=== PATIENT | male | born 1950 | race Caucasian/White ===

== ENCOUNTER 2018-05-15 01:33 | Outpatient (CLI) | payer OTHER, SELFPAY ==
--- NOTE | 2018-05-15 16:00 | DI.US_ITS ---
SYMPTOM/DIAGNOSIS: ? RT RENAL CYST, N28.1, F/U MRI RENAL ULTRASOUND: Comparison is made with CT from 2017 as well as MRI from 09/12/17. Two cysts were demonstrated on the previous MRI and are not as well seen on the CT due to lack of IV contrast. No suspicious features were identified. There is mild renal atrophy and mild parenchymal thinning. There are two cysts seen on the right kidney, one at the upper pole and the other in the mid right kidney. There are no suspicious features. There is no evidence of hydronephrosis or calcifications. The prostate is enlarged. The bladder was not well distended with a volume of 42 cc's. Both ureteral jets were visualized. There is circumferential bladder wall thickening. No focal bladder mass is identified. IMPRESSION: Enlarged prostate and diffuse bladder wall thickening. Simple right renal cysts.
== END 2018-05-15 01:53 ==
PROVIDERS: PCP Specialist/Technologist Athletic Trainer; Visit Provider Specialist/Technologist Athletic Trainer
DX: N28.1 Cyst of kidney, acquired (principal); N32.9 Bladder disorder, unspecified; N40.0 Benign prostatic hyperplasia without lower urinary tract symptoms
CPT/HCPCS: 76770

== ENCOUNTER 2018-11-09 11:05 | Outpatient (REF) | payer OTHER, SELFPAY ==
[2018-11-09 21:38] LABS: HGB 14.6 g/dL (13.5-17.5); Mean Corp. HGB Concentration 33.2 g/dL (32.0-36.0); Mean Corpuscular Hemoglobin 29.3 pg (27.0-33.0); Mean Corpuscular Volume 88.2 fL (80-95); Mean Platelet Volume 11.5 fL (8.0-11.0); Platelet Count 291 x1000/uL (130-400); RBC 4.99 m/cumm (4.50-6.00); RBC Distribution Width 13.9 % (11.8-14.1); White Blood Cell Count 6.18 k/cumm (4.4-10.8)
[2018-11-09 22:08] LABS: ALT 16 U/L (16-63); AST 17 U/L (15-37); Albumin 3.7 g/dL (3.4-5.0); Alkaline Phosphatase 95 U/L (46-116); Anion Gap 8.8 mmol/L (3-11); BUN 18 mg/dL (7-18); Bilirubin, Total 0.4 mg/dL (0.2-1.0); CO2 28.2 mmol/L (21.0-32.0); CREATININE 1.13 mg/dL (0.70-1.30); Calculated LDL 116 mg/dL; Chloride 103 mmol/L (98-107); Cholesterol 177 mg/dL (50-200); Glucose 84 mg/dL (70-100); HDL Cholesterol 49 mg/dL (40-60); Potassium 4.7 mmol/L (3.5-5.1); Sodium 140 mmol/L (136-145); Triglyceride 62 mg/dL (30-150)
== END 2018-11-09 11:25 ==
LOC: NCHCN 11:05
PROVIDERS: PCP Specialist/Technologist Athletic Trainer; Visit Provider Specialist/Technologist Athletic Trainer
DX: Z00.00 Encounter for general adult medical examination without abnormal findings (principal); K27.9 Peptic ulcer, site unspecified, unspecified as acute or chronic, without hemorrhage or perforation
CPT/HCPCS: 80053; 80061; 85027

== ENCOUNTER 2019-01-01 13:42 | Outpatient (REF) | payer OTHER, MEDICAID, SELFPAY ==
--- NOTE | 2019-01-01 | SKI_PTH ---
PATIENT: Antoine Neal LOC: [facility] U#:[id number] AGE/SX: 68/M ROOM: RE01/01/[address]: Brian Perez DO : 1950 BED: DIS: 01/01/2019 SPEC #: [id number] RECD: 01/01/19 18:12 STATUS: MELISSA REQ #: [id number] FERNANDO: 01/01/19 00:[address]: Brian Perez DEPT: Surgical Specimen RECD BY: Emma Lei ENTERED: 01/01/19 18:13 SP TYPE: NEIL BRENNER DR: Edwardo Lerner Tissues: 1 - SKIN BIOPSY(SHAVE/PUNCH) Procedures: SKIN LEVEL 4 Comments: [id number]
== END 2019-01-01 14:02 ==
LOC: LBN 13:42
PROVIDERS: PCP Specialist/Technologist Athletic Trainer; Visit Provider Otolaryngology Otolaryngology/Facial Plastic Surgery
DX: L82.1 Other seborrheic keratosis (principal)
CPT/HCPCS: 88305

== ENCOUNTER 2019-02-13 09:44 | Outpatient (CLI) | payer MEDICAID, SELFPAY ==
--- NOTE | 2019-02-13 09:55 | DI.RAD_ITS ---
EXAM: XR LUMBAR SPINE COMPLETE INDICATION: LOW BACK PAIN M54.5. COMPARISON: XR HIP LT COMPLETE AP PELVIS from 02/13/2019 TECHNIQUE: 2D digital imaging was performed. FINDINGS: Moderate degenerative changes are present throughout the lumbar spine. No acute fractures or subluxa tions are present. There is no spondylolysis or spondylolisthesis. Aortic calcifications are noted. IMPRESSION: No acute fracture or subluxation in the lumbar spine.
--- NOTE | 2019-02-13 09:55 | DI.RAD_ITS ---
EXAM: XR HIP LT COMPLETE AP PELVIS INDICATION: LT HIP PAIN M25.552 AFTER FALL. COMPARISON: LEFT HIP COMPLETE from 12/11/2009 THORACIC SPINE from 07/26/2017 LUMBAR SPINE COMPLETE from 07/26/2017 TECHNIQUE: 2D digital imaging was performed. FINDINGS: No acute fracture or dislocation is present. The patient has a left total hip replacement. No evide nce of hardware failure is seen. There is stable deformity of the left hemipelvis. This may be post traumatic. Vascular calcifications are seen in the soft tissues. The sacroiliac joint and symphysis pubis are intact. IMPRESSION: No acute fracture or dislocation.
== END 2019-02-13 10:04 ==
PROVIDERS: PCP Specialist/Technologist Athletic Trainer; Visit Provider Specialist/Technologist Athletic Trainer
DX: M54.5 Low back pain (principal); M47.816 Spondylosis without myelopathy or radiculopathy, lumbar region; M25.552 Pain in left hip; Z96.642 Presence of left artificial hip joint
CPT/HCPCS: 72110; 73502

== ENCOUNTER 2019-02-15 11:33 | Emergency (ER) | payer MEDICAID, SELFPAY ==
[2019-02-15 11:35] VITALS: BP 148/79; PULSE 66; RESP 14; TEMP 36.7; O2SAT 98
[2019-02-15] MEDS: Lidocaine 5% Patch 1 PATCH TP (11:57)
[2019-02-15] MEDS: Ketorolac 30 MG/ML VIAL IM (11:57)
--- NOTE | 2019-02-15 12:02 | DI.RAD_ITS ---
EXAM: XR SHOULDER RT COMPLETE 2+V INDICATION: 15 years of right shoulder pain. COMPARISON: No exams were available for comparison TECHNIQUE: 2D digital imaging was performed. FINDINGS: No fracture or dislocation is seen. There are mild degenerative changes of the AC joint and glenohum eral joint. An exostosis is seen in the proximal humeral metaphysis. IMPRESSION: No acute abnormality.
--- NOTE | 2019-02-15 12:17 | ED.GENADUL_ITS ---
Discharge Plan Disposition Patient Disposition: HOME Condition: Good Discharge Details Chief Complaint: Orthopedic Clinical Impression: Pain in right shoulder Primary Care Provider: Edwardo Lerner ED Provider: Jamari Son Home Meds and New Rx's Prescriptions: New acetaminophen [Mapap Extra Strength] 500 MG tablet 1,000 mg PO Q6H 5 Days Qty: 60 RF: 0 lidocaine [Lidoderm] 1 PATCH patch 1 patch Topical Q24H Qty: 4 RF: 0 No Action pantoprazole [Protonix] 20 MG tablet,delayed release (DR/EC) 40 mg PO DAILY RF: 0 pregabalin [Lyrica] 25 MG capsule 200 mg PO TID RF: 0 marijuana, medical RF: 0 Flovent HFA 120 PUFF HFA aerosol inhaler 2 puff Inhalation BID RF: 0 albuterol sulfate [ProAir HFA] 200 PUFF HFA aerosol inhaler 2 puff Inhalation Q4H PRN PRN (Reason: Wheezing) RF: 0 Discharge Instructions Instructions: Shoulder Pain (ED) Additional Instructions: At this time there is no evidence of significant abnormality in your shoulder on the x-ray. You do have chronic arthritis and degeneration. I have given you a prescription for Lidoderm patches, if your insurance does not cover this you can get 4% Lidoderm patches [id number] for relatively inexpensive cost. This is almost just as good as the prescription. Please continue to take Tylenol, you can take 1000 mg 4 times a day. I would recommend icing your shoulder and anytime it hurts. We have scheduled an orthopedic follow-up for you and they will contact you with the appointment date. If you notice any worsening of your symptoms, or any new symptoms such as vomiting, diarrhea, fever, chills, shortness of breath, chest pain, numbness, weakness, or fainting , please return immediately to the emergency department for reevaluation. Please follow up with your primary care provider as soon as possible for reassessment and reevaluation. As always, it was a pleasure participating in your medical care today. Referrals: Edwardo Lerner [Primary Care Provider] - Medical Decision Making This is a 68-year-old male who presents with 15 years of right should er pain. 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 He was seen by an credit collections specialist at [facility] 15 years ago, he is since moved. His symptoms became notably worse over the last week when he was laying down new tile at his trailer, and use the shoulder significantly. He is right-hand dominant. Physical exam shows notable restriction in movement no crepitus. No redness warmth or signs of infection cellulitis or significant bursitis. Intact sensation and vascular exam. Notable range of motion limitation for internal and external rotation as well as abduction. Suspect chronic arthritis compounded by impingement syndrome potentially. Patient takes Tylenol but avoids ibuprofen secondary to a history of gastric ulcers. X-ray shows no evidence of acute fracture process, there is some joint degeneration. Pain improved with Toradol shot Lidoderm patch. At this time I feel that the patient be safely discharged but does require orthopedic follow-up on an outpatient basis. We will schedule this for him. We will give a prescription for Lidoderm patches, as well as recommend continued NSAIDs ice. I have extensively reviewed the treatment plan and discharge instructions with the patient. I have addressed all patient concerns at this time. The patient was made aware of what symptoms to monitor for that would warrant a return to the emergency department. Discussed the plan with the patient, they demonstrate verbal understanding and agreement with our assessment and plan at this time. Additionally due to the chronicity of his symptoms, the notable reproducible component, signs and symptoms are notably inconsistent with ACS or cardiac etiology at this time clinically. HPI General Date/Time Provider Initiated Documentation: 02/15/19 11:40 . HPI Narrative: This is a 68-year-old male with past medical history of reactive airway disease, who presents with 15 years of right shoulder pain. Patient states they saw an orthopedist years ago they found nothing. 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 He states that his pain has gradually continued to increase throughout the years, however over the last few weeks he has been laying a significant amount of jose and tiling, which is notably worsened his symptoms. He has been taking Tylenol but this is not improved his symptoms. He admits to occasional tingling in his hand arm and fingers. He denies any chest pain or chest tightness. Symptoms are made worse only with movement of the shoulder. He denies any recent trauma or previous fractures. He denies any fever or chills. He denies any IV or illicit drug use. He has no other complaints at this time. No other modifying factors. Related Data Home Medications Medication Instructions Recorded Confirmed pantoprazole [Protonix] 40 mg PO DAILY 11/13/15 02/15/19 pregabalin [Lyrica] 200 mg PO TID 11/13/15 02/15/19 Flovent HFA 2 puff INHALATION BID 12/03/15 07/17/18 albuterol sulfate [ProAir HFA] 2 puff INHALATION Q4H PRN PRN 12/03/15 02/15/19 acetaminophen [Mapap Extra 1,000 mg PO Q6H 5 Days #60 tab 02/15/19 Strength] lidocaine [Lidoderm] 1 patch TOPICAL Q24H #4 patch 02/15/19 Previous Rx's Medication Instructions Recorded acetaminophen [Mapap Extra 1,000 mg PO Q6H 5 Days #60 tab 02/15/19 Strength] lidocaine [Lidoderm] 1 patch TOPICAL Q24H #4 patch 02/15/19 Allergies Allergy/AdvReac Type Severity Reaction Status Date / Time clonazepam Allergy Unverified 02/15/19 11:40 aspirin AdvReac Intermediate ulcers Unverified 02/15/19 11:40 ibuprofen AdvReac Intermediate GI Bleeding Unverified 02/15/19 11:40 General Stated Complaint: Orthopedic ANTWAN: 4 Review of Systems All systems reviewed & are unremarkable except as noted in HPI and below PFSH Social History Smoking/Tobacco Use Status: Former Tobacco Use Drug use: Daily Do you feel safe at home: Yes Do you feel safe in your relationship?: Yes Exam Narrative Exam Narrative: 1.Const: Well-nourished, Well-developed, appearing stated age 2.Eyes: PERRL, no conjunctival injection, and symmetrical lids. 3.ENT: Atraumatic external nose and ears. Moist MM. Neck: Symmetric, trachea midline, No thyromegaly. 4.CVS: +S1/S2, No murmurs or gallops. Peripheral pulses 2+ and equal in all extremities. Brisk capillary refill in all extremities. 5.RESP: Unlabored respiratory effort. Clear to auscultation bilaterally. No wheezes rales or rhonchi 6.GI: Soft, Nontender/Nondistended, No hepatosplenomegaly. No guarding or rebound. 7.MSK: Normocephalic/Atraumatic, Extremities w/o deformity. No cyanosis or clubbing. Right shoulder: Right shoulder is notably limited in motion compared to the left likely secondary to the patient's decrease in use from pain. Pain is made worse with abduction, internal and external rotation. Decent range of motion with flexion and extension, mild tenderness on palpation of the shoulder in general, no focal tenderness though. No crepitus, no warmth, redness or signs of cellulitis. Exam of the elbow hand and fingers demonstrates normal flexion and extension normal strength and movement for all components. Brisk capillary refill in all fingers, intact two-point discrimination up to 5 mm in all fingers. Sensation is intact for pinprick and light touch. 8.Skin: Warm, Dry. No rashes or lesions. 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 Sensation grossly intact, no focal neurologic deficits. 10.Psych: (AAO) x3. Appropriate mood and affect Course Vital Signs Vital signs: Vital Signs Temperature 36.7 C 02/15/19 11:35 Pulse 66 02/15/19 11:35 Respiratory Rate 14 02/15/19 11:35 Blood Pressure 148/79 H 02/15/19 11:35 Pulse Oximetry 98 02/15/19 11:35 Temperature 36.7 C 02/15/19 11:35 Temperature Source Skin 02/15/19 11:35 Pulse 66 02/15/19 11:35 Respiratory Rate 14 02/15/19 11:35 Respiratory Effort 02/15/19 11:41 Blood Pressure 148/79 H 02/15/19 11:35 Blood Pressure Position Sitting 02/15/19 11:35 Pulse Oximetry 98 02/15/19 11:35 Oxygen Delivery Method Room Air 02/15/19 11:35 Oxygen Flow Rate 0 02/15/19 11:35 Pain Level 10 02/15/19 11:35 Comment 02/15/19 11:35
== END 2019-02-15 12:33 | disposition home or self-care (01) ==
PROVIDERS: Emergency Provider Student in an Organized Health Care Education/Training Program; PCP Specialist/Technologist Athletic Trainer
DX: M25.511 Pain in right shoulder (principal); X50.3XXA Overexertion from repetitive movements, initial encounter
CPT/HCPCS: 96372; 99284; 73030; 99283; J1885

== ENCOUNTER 2019-03-21 06:02 | Outpatient (CLI) | payer MEDICAID, SELFPAY ==
--- NOTE | 2019-03-21 09:45 | DI.MRI_ITS ---
EXAM: MR UPPER JOINT RT WO CLINICAL HISTORY: RT SHOULDER PAIN M25.511, CONCERN FOR RC TEAR. TECHNIQUE: Multiplanar multisequence MRI was performed. COMPARISON: MRI - L UPPER JOINT WO CONT from 04/23/2010 MRI - LUMBAR SPINE WO CONTRAST from 09/12/2017 XR SHOULDER RT COMPLETE 2+V from 02/15/2019 FINDINGS: There is mild spurring at the AC joint. There is a trace amount of fluid in the subacromial-subdelto id bursa. There is minimal intermediate signal in the distal supraspinatus tendon but no evidence of a discrete tear. There is no glenohumeral joint effusion. The infraspinatus, subscapularis and bic eps tendons appear intact. There is no significant muscular atrophy. There are mild degenerative ch anges of the glenoid. IMPRESSION: Mild degenerative changes of the AC joint and glenohumeral joint. Mild supraspinatus tendinosis.
== END 2019-03-21 06:22 ==
PROVIDERS: PCP Specialist/Technologist Athletic Trainer; Visit Provider Specialist/Technologist Athletic Trainer
DX: M25.511 Pain in right shoulder (principal); M19.011 Primary osteoarthritis, right shoulder; M75.81 Other shoulder lesions, right shoulder
CPT/HCPCS: 73221

== ENCOUNTER 2019-08-28 11:20 | Outpatient (REF) | payer MEDICAID, SELFPAY ==
[2019-08-29 09:16] LABS: PSA, Diagnostic 8.4 ng/mL (0.0-4.5)
== END 2019-08-28 11:40 ==
LOC: LBN 11:20
PROVIDERS: PCP Specialist/Technologist Athletic Trainer; Visit Provider Urology
DX: R97.20 Elevated prostate specific antigen [PSA] (principal)
CPT/HCPCS: 84153

== ENCOUNTER 2019-10-11 01:43 | Outpatient (CLI) | payer MEDICAID, SELFPAY ==
--- NOTE | 2019-10-11 08:10 | DI.RAD_ITS ---
EXAM: XR CHEST 2V PA LATERAL CLINICAL HISTORY: PREOP,Z01.818,MARJIUANA USE,F12.10 TECHNIQUE: 2D digital imaging was performed. COMPARISON: CR RIGHT SHOULDER COMPLETE from 05/12/2017 FINDINGS: The heart size is normal. The aorta is mildly tortuous. There are severe emphysematous changes, gre atest at the right upper lobe. There is bilateral pulmonary scarring. No infiltrate or effusion is seen. There are mild degenerative changes in the thoracic spine and shoulders. An exostosis is note d from the right proximal humerus. IMPRESSION: Emphysematous changes and scarring. No acute pulmonary findings. DATA REPOSITORY: RADIATION DOSE DELIVERED:
== END 2019-10-11 02:03 ==
PROVIDERS: PCP Family Medicine; Visit Provider Nurse Practitioner Family
DX: J43.9 Emphysema, unspecified (principal); F12.10 Cannabis abuse, uncomplicated; Z01.818 Encounter for other preprocedural examination
CPT/HCPCS: 71046

== ENCOUNTER 2020-01-14 09:20 | Outpatient (REF) | payer MEDICAID, SELFPAY ==
[2020-01-14 20:04] LABS: Anion Gap 5.8 mmol/L (3-11); BUN 17 mg/dL (7-18); CO2 28.2 mmol/L (21.0-32.0); CREATININE 1.13 mg/dL (0.70-1.30); Calculated LDL 116 mg/dL (<100); Chloride 101 mmol/L (98-107); Cholesterol 190 mg/dL (<200); Glucose 89 mg/dL (74-106); HDL Cholesterol 57 mg/dL (40-60); Magnesium 2.2 mg/dL (1.8-2.4); Potassium 4.4 mmol/L (3.5-5.1); Sodium 135 mmol/L (136-145); Triglyceride 85 mg/dL (<150)
== END 2020-01-14 09:40 ==
LOC: NCHCN 09:20
PROVIDERS: PCP Family Medicine; Visit Provider Nurse Practitioner Family
DX: Z51.81 Encounter for therapeutic drug level monitoring (principal); Z00.00 Encounter for general adult medical examination without abnormal findings
CPT/HCPCS: 80048; 80061; 83735

== ENCOUNTER 2020-05-11 09:15 | Emergency (ER) | payer MEDICARE, MEDICAID, SELFPAY ==
[2020-05-11 09:22] VITALS: BP 179/91; PULSE 77; RESP 20; TEMP 36.6; O2SAT 97
[2020-05-11] MEDS: Ketorolac 60 MG/2 ML VIAL IM (10:12)
[2020-05-11] MEDS: Lidocaine 5% Patch 1 PATCH TP (10:12)
--- NOTE | 2020-05-11 10:25 | ED.GENADUL_ITS ---
Discharge Plan Disposition Patient Disposition: HOME Condition: Stable Discharge Details Clinical Impression: Acute exacerbation of chronic low back pain Primary Care Provider: Radha Barlow V ED Provider: Sarbjit Grant Home Meds and New Rx's Prescriptions: New methylprednisolone [Methylpred DP] 4 mg tablets,dose pack See Rx Instructions .ROUTE .COMPLEX Qty: 21 RF: 0 lidocaine [Lidoderm] 5 % adhesive patch,medicated 1 patch topical DAILY Qty: 15 RF: 0 Continued pantoprazole [Protonix] 20 MG tablet,delayed release (DR/EC) 40 mg PO DAILY RF: 0 pregabalin [Lyrica] 25 MG capsule 300 mg PO BID RF: 0 marijuana, medical RF: 0 Flovent HFA 120 PUFF HFA aerosol inhaler 2 puff Inhalation BID RF: 0 albuterol sulfate [ProAir HFA] 200 PUFF HFA aerosol inhaler 2 puff Inhalation Q4H PRN PRN (Reason: Wheezing) RF: 0 lidocaine [Lidoderm] 1 PATCH patch 1 patch Topical Q24H Qty: 4 RF: 0 Discharge Instructions Instructions: Back Pain (ED) Additional Instructions: Medrol Dosepak and Lidoderm patches as directed. Gentle stretching as tolerated. Alternate between cool and/or warm compresses every 2 hours for 20 minutes. Please watch for new or worsening symptoms and return to the ER for any concerns. I strongly recommend contacting your orthopedic team in [place] tomorrow during business hours to discuss your ongoing symptoms and set up an outpatient appointment for further evaluation. Discharge Data Discharge Date/Time-TO BE ENTERED AT DEPARTURE: 05/11/20 10:34 Medical Decision Making <ELIEZER Jean - Last Filed: 05/11/20 11:53> This is a 69-year-old gentleman presenting complaining of left back and leg pain for the past 5 weeks, atraumatic. History of similar episodes typically helped with steroids however at this time the steroids have not helped. Patient denies fever, abdominal pain, urinary or bowel changes, numbness, tingling, weakness. Clinically he appears well, nontoxic, no acute distress. No evidence of saddle paresthesias, denies history of IV drug use. Clinically I believe this is likely musculoskeletal. I reviewed previous records, x-ray of lumbar spine and hip in February 2019. Patient does have good access to his orthopedic team and is followed by urology. He reports that in the past an IM injection has helped greatly. Clinically I see no obvious emergent process. He is afebrile, neuro, vascular, tendon intact. Discussed options, he is comfortable with an IM injection of Toradol, trying a Lidoderm patch, and will follow up with orthopedics. I do believe this to be perfectly reasonable plan. I did discuss the case with Dr. Morris who personally evaluated the patient, please see his note. Patient given IM Toradol and lidocaine patch. Patient reports moderate analgesia. He is now ambulating with less of an antalgic gait. Patient has no additional questions or concerns. He was given strict return precautions. We did discuss starting him on another trial of steroids, I will write this pr escription. He will contact his orthopedic team tomorrow for prompt outpatient reevaluation. Medical Records Medical records reviewed: Yes I reviewed the patient's medical records. <Agustin Morris MD - Last Filed: 05/16/20 20:52> Patient seen, examined, and discussed with ELIEZER Grant. I agree with treatment plan as discussed/documented. HPI <ELIEZER Jean - Last Filed: 05/11/20 11:53> General Mode of arrival: ambulatory . Date/Time Provider Initiated Documentation: 05/11/20 09:16 . Limitations to Documentation: no limitations . Information obtained by: patient . HPI Narrative: This is a 69-year-old gentleman with history of chronic back pain, elevated PSA, transection of his prostate, no diagnosis of prostate cancer. He reports history of GERD, COPD, former smoker. He tells me that he had a left hip replacement several years ago at [place], this is where he is followed by orthopedics. He states that he has had left lower back hip and leg pain intermittently for several years. This most recent episode began 5 weeks ago, was atraumatic. He contacted his primary care provider who prescribed a Medrol Dosepak which typically helps with these flareups; however, this time did not get any resolution. He cannot take oral anti-inflammatories secondary to history of ulcer and bleeding. He has had a hard time getting connected with his orthopedics given Covid and the pandemic. He states he does not want any oral pain medication. He denies recent illness, trauma, fevers, abdominal pain, nausea, vomiting, dysuria, hematuria, pain rating to his groin or testicles, diarrhea, constipation, black tarry stools or blood in his stools. He reports that the pain shoots all the way down his left leg but denies any numbness, tingling, weakness. He does state that occasionally he gets weakness in his left leg but it is not present now. He has had imaging of his left hip and back approximately 1 year ago for his ongoing symptoms. He also states that occasionally when the pain gets this severe, he is to be seen in the ER, typically an IM injection takes away his discomfort. Related Data Home Medications Medication Instructions Recorded Confirmed pantoprazole [Protonix] 40 mg PO DAILY 11/13/15 05/11/20 pregabalin [Lyrica] 300 mg PO BID 11/13/15 05/11/20 Flovent HFA 2 puff INHALATION BID 12/03/15 05/11/20 albuterol sulfate [ProAir HFA] 2 puff INHALATION Q4H PRN PRN 12/03/15 05/11/20 lidocaine [Lidoderm] 1 patch TOPICAL Q24H #4 patch 02/15/19 05/11/20 lidocaine [Lidoderm] 1 patch TOPICAL DAILY #15 ea 05/11/20 methylprednisolone [Methylpred DP] See Rx Instructions .ROUTE 05/11/20 .COMPLEX #21 dose pk Previous Rx's Medication Instructions Recorded lidocaine [Lidoderm] 1 patch TOPICAL Q24H #4 patch 02/15/19 lidocaine [Lidoderm] 1 patch TOPICAL DAILY #15 ea 05/11/20 methylprednisolone [Methylpred DP] See Rx Instructions .ROUTE 05/11/20 .COMPLEX #21 dose pk Allergies Allergy/AdvReac Type Severity Reaction Status Date / Time clonazepam Allergy Unverified 08/28/19 10:23 aspirin AdvReac Intermediate ulcers Unverified 08/28/19 10:23 ibuprofen AdvReac Intermediate GI Bleeding Unverified 08/28/19 10:23 General Stated Complaint: Nk/Back Pain ANTWAN: 4 Review of Systems <ELIEZER Jean - Last Filed: 05/11/20 11:53> Constitutional Constitutional: Denies fever(s) Cardiovascular Cardiovascular: Denies chest pain and Denies dyspnea Respiratory Respiratory: Denies cough and Denies dyspnea Gastrointestinal Gastrointestinal: Denies abdominal pain, Denies fecal incontinence, Denies nausea and Denies vomiting Genitourinary Genitourinary: Denies hematuria, Denies dysuria and Denies urinary incontinence Musculoskeletal Musculoskeletal: Reports back pain, Denies numbness and Denies tingling Integumentary/Breasts Skin/Breast: Denies rash Neurologic Neurologic: Denies numbness and Denies tingling PFSH <ELIEZER Jean - Last Filed: 05/11/20 11:53> Medical History High prostate specific antigen (PSA) Social History Smoking/Tobacco Use Status: Former Tobacco Use Smoking risk assessment performed?: Yes Drug use: Daily Substance use type: marijuana Do you feel safe at home: Yes Do you feel safe in your relationship?: Yes Exam <ELIEZER Jean - Last Filed: 05/11/20 11:53> Const General: cooperative, healthy appearing, comfortable and no acute distress Orientation: alert and awake HENKS Head: normal to inspection, normocephalic and atraumatic Eyes General: appearance normal, both eyes and all related structures Conjunctivae: conjunctivae normal Sclera: sclerae normal Neck Neck: normal visual inspection, full ROM, trachea midline and supple Resp Effort & Inspection: normal respiratory effort and able to speak in complete sentences Auscultation: clear to auscultation bilaterally Cardio Rate: regular rate Rhythm: regular rhythm GI Palpation: soft, not firm, no guarding, no pulsatile masses and nontender Back/Spine/Pelvis Back: no CVA tenderness and back tenderness (Diffuse left lower lumbar, no midline point tenderness) Skin General skin exam: no rashes or lesions noted Neuro General: patient alert, patient awake, moves all extremities and no focal motor deficits Cognition: normal cognition Gait: antalgic Motor: muscle tone normal throughout and strength 5/5 throughout Sensory Exam: no sensory deficits noted DTR's: Rt Patellar: 2+, Lt Patellar: 2+, Rt Ankle: 2+ and Lt Ankle: 2+ Extrem General: normal to inspection, full ROM, capillary refill normal, no pedal edema and no calf tenderness Other: Left lower extremity with full range of motion. Neuro, vascular, tendon intact. Normal pedal pulses. There is no swelling, erythema, ecchymosis, temperature discrepancies. Patient reports tenderness to entire leg with palpation. Psych Appearance: grossly normal Mental Status: mental status grossly normal Course <ELIEZER Jean - Last Filed: 05/11/20 11:53> Vital Signs Vital signs: Vital Signs Temperature 36.6 C 05/11/20 09:22 Pulse 77 05/11/20 09:22 Respiratory Rate 20 05/11/20 09:22 Blood Pressure 179/91 H 05/11/20 09:22 Pulse Oximetry 97 05/11/20 09:22 Temperature 36.6 C 05/11/20 09:22 Temperature Source Skin 05/11/20 09:22 Pulse 77 05/11/20 09:22 Respiratory Rate 20 05/11/20 09:22 Respiratory Effort Non-Labored 05/11/20 09:26 Blood Pressure 179/91 H 05/11/20 09:22 Blood Pressure Position Sitting 05/11/20 09:22 Pulse Oximetry 97 05/11/20 09:22 Oxygen Delivery Method Room Air 05/11/20 09:22 Oxygen Flow Rate 0 05/11/20 09:22 Pain Level 10 05/11/20 09:22
== END 2020-05-11 10:34 | disposition home or self-care (01) ==
PROVIDERS: Emergency Provider Physician Assistant; PCP Family Medicine
DX: M54.5 Low back pain (principal); G89.29 Other chronic pain; Z96.642 Presence of left artificial hip joint
CPT/HCPCS: 96372; 99284; 99283; J1885

== ENCOUNTER 2020-08-07 10:08 | Outpatient (CLI) | payer MEDICARE, MEDICAID, SELFPAY ==
--- NOTE | 2020-08-07 08:15 | DI.RAD_ITS ---
Exam(s) XR HIP LT AP LAT ONLY EXAM: XR HIP LT AP LAT ONLY CLINICAL HISTORY: L hip pain TECHNIQUE: COMPARISON: CR XR LUMBAR SPINE COMPLETE from 02/13/2019 FINDINGS: Two views were obtained and show total hip joint replacement in position on the left. The components appear well seated. No other significant abnormality seen. There are mild degenerative changes of the right hip. IMPRESSION: RADIATION DOSE DELIVERED: Total DLP
== END 2020-08-07 10:09 | disposition home or self-care (01) ==
LOC: DIORS 10:13
PROVIDERS: PCP Family Medicine; Referring Provider Family Medicine; Visit Provider Physician Assistant
DX: M25.552 Pain in left hip (principal); Z96.642 Presence of left artificial hip joint
CPT/HCPCS: 73502

== ENCOUNTER 2020-08-13 01:28 | Outpatient (CLI) | payer MEDICARE, OTHER, MEDICAID, SELFPAY ==
--- NOTE | 2020-08-13 07:15 | DI.NM_ITS ---
Exam(s) NM BONE SCAN 3 PHASE EXAM: NM BONE SCAN 3 PHASE CLINICAL HISTORY: hip pain after total hip replacement,M25.552,Z96.642. TECHNIQUE: Injected Dose: 25 mCi Tc-99m MDP COMPARISON: CR XR HIP LT AP LAT ONLY from 08/07/2020 FINDINGS: Comparison is made with x-ray of the pelvis and left hip dated 08/07/2020. Perfusion: Symmetric. No focal areas of abnormal uptake. Blood Pool: Symmetric. No focal areas of abnormal uptake. Delayed: Photopenic area in the left hip consistent with the patient's known left total hip arthropla sty. Mild increased radiotracer uptake around the femoral component of the left hip prosthesis. The re is a focus of increased radiotracer uptake on the right at the L4-5 level. This would appear cons istent with the degenerative changes seen in the lumbar spine on the MRI examination from 09/12/2017. There is increased radiotracer uptake at the right acromioclavicular joint. This is consistent with degenerative changes seen on the MRI of the right shoulder from 03/21/2019. IMPRESSION: 1. No findings to suggest infection. DATA REPOSITORY:
== END 2020-08-13 01:48 ==
PROVIDERS: PCP Family Medicine; Visit Provider Student in an Organized Health Care Education/Training Program
DX: M25.552 Pain in left hip (principal); Z96.642 Presence of left artificial hip joint
CPT/HCPCS: 78315

== ENCOUNTER 2020-08-13 03:21 | Outpatient (CLI) | payer MEDICARE, MEDICAID, SELFPAY ==
[2020-08-13 11:52] LABS: HCT 44.5 % (40.0-50.0); HGB 14.7 g/dL (13.5-17.5); MCH 28.8 pg (27.0-33.0); MCV 87.3 fL (80-95); MPV 10.2 fL (8.0-11.0); Platelet Count 233 10^3/uL (130-400); RDW 13.2 % (11.8-14.1); RDW-SD 42.5 fL; WBC 6.35 10^3/uL (4.4-10.8)
[2020-08-13 11:54] LABS: ESR 21 mm/hr (0-20)
[2020-08-13 12:19] LABS: C-Reactive Protein 0.38 mg/dL (0.0-0.3)
== END 2020-08-13 03:22 | disposition home or self-care (01) ==
LOC: LBO 03:21
PROVIDERS: PCP Family Medicine; Visit Provider Student in an Organized Health Care Education/Training Program
DX: M25.552 Pain in left hip (principal)
CPT/HCPCS: 85027; 85652; 78315; 86140

== ENCOUNTER 2020-11-10 00:28 | Outpatient (CLI) | payer MEDICARE, MEDICAID, SELFPAY ==
--- NOTE | 2020-11-10 | DI.MRI_ITS ---
Exam(s) MR THORACIC SPINE WO/W EXAM: MR THORACIC SPINE WO/W CLINICAL HISTORY: LT SIDED BACK AND HIP PAIN,. TECHNIQUE: Multiplanar multisequence MRI of the Thoracic spine was performed. CONTRAST MATERIAL: IV Contrast: 14 mL of Dotarem contrast administered. COMPARISON: No exams were available for comparison FINDINGS: The examination is limited due to patient motion artifact. Bones: The vertebral body heights are well maintained. Alignment is satisfactory. The signal characte ristics are unremarkable. Cord: The thoracic cord is normal size and signal intensity. No intrinsic cord lesion is present. Discs: No disc herniation or bulge is present. Soft tissues: Normal. There is no evidence of suspicious enhancement. IMPRESSION: Unremarkable MRI examination of the thoracic spine. DATA REPOSITORY:
[2020-11-10 08:33] LABS: CREATININE 1.1 mg/dL (0.70-1.30)
[2020-11-10] MEDS: Normal Saline Flush 10 ML SYR IVP (09:07)
[2020-11-10] MEDS: Gadoterate meglumine 20 ML VIAL 14 ML IVP (09:07)
--- NOTE | 2020-11-10 10:15 | DI.MRI_ITS ---
Exam(s) MR LUMBAR SPINE WO/W EXAM: MR LUMBAR SPINE WO/W CLINICAL HISTORY: LT LUMBAR RADICULOPATHY,M54.16,LT SIDED LOW BACK AND HIP PAIN. TECHNIQUE: Multiplanar multisequence MRI of the Lumbar Spine was performed. CONTRAST MATERIAL: IV Contrast: 14 mL of Dotarem contrast administered. COMPARISON: MR MRI - LUMBAR SPINE WO CONTRAST from 09/12/2017 FINDINGS: Bones: The last intervertebral disc space is designated the L5/S1 level for the numbering purpose of this examination. The vertebral body heights are well maintained. Alignment is satisfactory. The sig nal characteristics are unremarkable. There is an L4 and L5 laminectomy. Cord: The conus tip ends at the L1 level. It is of normal size and signal intensity. T12-L1: No disc herniations or bulges are present. No central spinal canal or neural foraminal stenos is. L1-2: There is a mild diffuse disc bulge. No central spinal canal or neural foraminal stenosis. L2-3: A mild diffuse disc bulge is present. No significant central spinal canal stenosis is present. No neural foraminal stenosis is present. L3-4: There is a mild diffuse disc bulge and disc desiccation. Mild narrowing of the central spinal canal is noted.[id number] bilateral neural foraminal stenosis is present. L4-5: There is a diffuse disc bulge and disc desiccation. Moderate central spinal canal stenosis is seen.There is marked bilateral neural foraminal stenosis. L5-S1: No disc herniations or bulges are present. No central spinal canal or neural foraminal stenosi s. Soft tissues: The visualized SI joints and sacrum are well maintained. The paraspinal soft tissues ar e unremarkable. Bilateral simple renal cysts. There is no evidence of suspicious enhancement. IMPRESSION: Stable multilevel degenerative changes in the lumbar spine resulting in central spinal canal and neur al foraminal stenosis predominantly at L4-5. DATA REPOSITORY:
== END 2020-11-10 00:48 ==
PROVIDERS: PCP Family Medicine; Visit Provider Nurse Practitioner Family
DX: M54.16 Radiculopathy, lumbar region (principal); M25.552 Pain in left hip; M51.36 Other intervertebral disc degeneration, lumbar region; M99.73 Connective tissue and disc stenosis of intervertebral foramina of lumbar region
CPT/HCPCS: 72158; 72157; 82565

== ENCOUNTER → 2021-03-02 08:55 | Outpatient (BNVA) | payer MEDICARE, MEDICAID, SELFPAY | PROVIDERS: PCP Family Medicine; Referring Provider Family Medicine; Visit Provider Urology | DX: R31.0 Gross hematuria (principal); R97.20 Elevated prostate specific antigen [PSA] | CPT/HCPCS: 81003; 99214 ==

== ENCOUNTER 2021-03-02 12:28 | Outpatient (REF) | payer MEDICARE, MEDICAID, SELFPAY ==
[2021-03-02 18:24] LABS: PSA, Diagnostic 10.1 ng/mL (0.0-4.5)
== END 2021-03-02 12:29 | disposition home or self-care (01) ==
LOC: LBN 12:28
PROVIDERS: PCP Family Medicine; Visit Provider Urology
DX: R31.0 Gross hematuria (principal); R97.20 Elevated prostate specific antigen [PSA]
CPT/HCPCS: 84153

== ENCOUNTER 2021-03-17 02:11 | Outpatient (CLI) | payer MEDICARE, MEDICAID, SELFPAY ==
[2021-03-17 13:21] LABS: Source Nasal/Nares
[2021-03-17 15:38] LABS: COVID-19 PCR Negative (Negative)
== END 2021-03-17 02:12 | disposition home or self-care (01) ==
LOC: LBO 02:12
PROVIDERS: PCP Family Medicine; Visit Provider Urology
DX: Z20.822 Contact with and (suspected) exposure to COVID-19 (principal); Z01.818 Encounter for other preprocedural examination
CPT/HCPCS: 87635

== ENCOUNTER 2021-03-19 07:16 | Day surgery (SDC) | payer MEDICARE, MEDICAID, SELFPAY ==
[2021-03-19 07:20] VITALS: BP 141/76; PULSE 63; RESP 16; TEMP 36.1; O2SAT 97
[2021-03-19 07:27] VITALS: BP 147/76; RESP 16; TEMP 36.1; O2SAT 97
[2021-03-19] MEDS: Lactated Ringers 1,000 ML 80 ML IV (07:56)
--- NOTE | 2021-03-19 08:22 | W.ANESPRE ---
General Info Date of Service Date Performed: 03/19/21 Height: 5 ft 8 in Weight: 76.5 kg Body Mass Index (BMI): 25.6 Surgical Procedure: Operation Date: 03/19/21 09:10 Proposed Procedures Side Surgeon p Cystoscopy/Possible Transurethral Resection Bladder Tumor Jhony Meade MD Meds Allergies and Home Medications Allergies Allergy/AdvReac Type Severity Reaction Status Date / Time clonazepam Allergy Intermediate Other (See Unverified 03/19/21 07:36 Comment) aspirin AdvReac Intermediate ulcers Unverified 03/19/21 07:36 ibuprofen AdvReac Intermediate GI Bleeding Unverified 03/19/21 07:36 Home Medication Medication Instructions Recorded pantoprazole [Protonix] 40 mg PO DAILY 11/13/15 pregabalin [Lyrica] 300 mg PO BID 11/13/15 Flovent HFA 2 puff INHALATION BID 12/03/15 albuterol sulfate [ProAir HFA] 2 puff INHALATION Q4H PRN PRN 12/03/15 lidocaine [Lidoderm] 1 patch TOPICAL DAILY #15 ea 05/11/20 finasteride 5 mg tablet 5 mg PO DAILY #30 tab 03/02/21 Current Visit Medications: Current Medications Generic Name Dose Route Start Last Admin Trade Name Freq PRN Reason Stop Dose Admin Ringer's Solution 1,000 mls @ 80 mls/hr 03/19/21 06:00 03/19/21 07:56 IV 04/17/21 23:59 80 mls/hr INFUSION UMA Administration Cefazolin Sodium/Dextrose 2 gm in 50 mls @ 100 mls/hr 03/19/21 06:00 Ancef Duplex IVPB 03/19/21 16:00 PREOP UMA IV Miscellaneous Supplies 1 each 03/19/21 06:00 Iv Access IV 04/17/21 23:59 DIRECTED UMA Sodium Chloride 0 ml 03/19/21 06:00 Normal Saline Flush 10 Ml Syr IV 04/17/21 23:59 PRN PRN Sodium Chloride 0 ml 03/19/21 06:00 Normal Saline 10 Ml Vial IJ 04/17/21 23:59 DIRECTED PRN Sterile Water 0 ml 03/19/21 06:00 Water,Injection,Sterile 10 Ml Vial IJ 04/17/21 23:59 DIRECTED PRN PFSH Active Problems Active Problems: Problem Status Onset Code Urine retention R33.9 Neoplasm of unspecified behavior of bone, soft tissue, and skin D49.2 Chronic obstructive pulmonary disease J44.9 Gastroesophageal reflux disease without esophagitis K21.9 Medical marijuana use Z79.899 High prostate specific antigen (PSA) R97.20 Acute exacerbation of chronic low back pain M54.5, G89.29 Chronic hip pain after total replacement of left hip joint M25.552, G89.29, Z96.642 Gross hematuria R31.0 Medical History Medical History Prostatitis, chronic (12/15/15) Surgical History Surgical History (Updated 03/19/21 @ 07:35 by Abril Olmstead) H/O spinal fusion Tobacco Smoking/Tobacco Use Status: Former Tobacco Use Alcohol Alcohol Intake: current Alcohol intake frequency: holidays/special occasions only Substance Use Substance use: Daily Substance use type: marijuana Vital Signs and Lab Results Vital Signs Most Recent Vital Signs in EMR: Most Recent Vital Signs Temp Pulse Resp BP Pulse Ox 36.1 C L 63 16 147/76 H 97 03/19/21 07:27 03/19/21 07:20 03/19/21 07:27 03/19/21 07:27 03/19/21 07:27 Lab Results Blood Type / Crossmatch: No Data to Display Complete Blood Count: No Data to Display Complete Metabolic Panel: No Data to Display Liver Function Panel: No Data to Display Coagulation Panel: No Data to Display Cardiac Panel: No Data to Display Arterial Blood Gas: No Data to Display Venous Blood Gas: No Data to Display Pancreas Panel: No Data to Display Thyroid Panel: No Data to Display Infectious Disease: Coronavirus (COVID-19)(PCR) Negative (Negative) 03/17/21 08:30 03/17/21 Coronavirus 2019 Source Nasal/Nares 03/17/21 08:30 03/17/21 Blood Cultures: No Data to Display Toxicology Panel: No Data to Display Anesthesia Assessment and Plan Anesthesia History Personal History: No History of Anesthesia Complications Family History: No Family History of Anesthesia Complications Exercise Tolerance Exercise Tolerance: Metabolic Equivalents>4 Pertinent Negatives Pertinent Negatives: No Major Cardiovascular Symptoms or Complaints Cardiac & Pulmonary Exam Cardiac Exam: Normal S1/S2 Heart Sounds Pulmonary Exam: Clear Bilateral Breath Sounds Implantable Cardiac Device Does patient have a Pacemaker or an ICD?: No Airway Exam Known Difficult Airway: No Mallampati Class: 2 Mouth Opening: Normal (> 3cm) Thyromental Distance: Greater than 3 cm Facial Hair: Full [place] Neck Range of Motion: Full ROM Neck Circumference: Normal Teeth Condition: Edentulous ASA Classification ASA Score: ASA 2 Emergency Case?: No NPO Status NPO Status: NPO Clears >2 hours, Solids >8 hours Anesthesia Plan Resuscitation Status: Full Code Anesthesia Technique: General Anesthesia Airway Planned: LMA Monitors Used: Standard Monitors Preoperative Comments:: Daily heavy, chronic marijuana use. Reports no complications with past anesthetics. LMA 5 previously with good seal.
[2021-03-19 08:24] VITALS: BMI 25.6
--- NOTE | 2021-03-19 09:25 | HPE_ITS ---
Date of service: 03/19/21 Time of Service: 09:25 Assessment and Plan Assessment and plan (1) Gross hematuria: Status: Acute Assessment and plan: For cystoscopy with possible TURBT/possible fulguration of prostate bleeders History of Present Illness History of Present Illness Chief Complaint: Gross hematuria Narrative: This is a 69-year-old gentleman known to me from his previous episodes of urinary retention. He developed retention after a hip replacement. He failed maximal medical therapy and ultimately underwent a transurethral resection of the prostate back in 2016. His surgical pathology showed inflammation and prostate enlargement with no evidence of cancer. Cystoscopically, we noted a large median lobe as well as lateral lobe enlargement. We did not notice any sign of bladder cancer He had been doing well when he developed an acute onset of gross hematuria late last week. The episode occurred after he lifted and carried a battery. He did not notice any clots in the urine. Over time, the urine has cleared. we started him on finasteride and he has had no subsequent bleeding. He was seen in the emergency room at [facility]. His urinalysis was reassuring for the absence of infection. A CT scan done with contrast raised the question of a bladder mass or prostate indenting the base of the bladder. He is not on any anticoagulation. He has no history of kidney stones. He does not use tobacco products, but uses marijuana daily. He comes in for cystoscopy with possible TURBT/fulguration of bleeding sites. Review of Systems Narrative: No fevers or chills No vision change or dysphasia No diabetes or thyroid Chronic cough. No hemoptysis No chest pain or palpitations Hx GERD. No hepatitis, ulcers, jaundice, diarrhea or constipation No seizures, strokes or peripheral neuropathy No bleeding disorders or anemia No gout PFSH All Active Problems Urine retention (Acute) Neoplasm of unspecified behavior of bone, soft tissue, and skin (Acute) Chronic obstructive pulmonary disease (Chronic) Gastroesophageal reflux disease without esophagitis (Acute) Medical marijuana use (Acute) High prostate specific antigen (PSA) (Acute) Acute exacerbation of chronic low back pain (Acute) Chronic hip pain after total replacement of left hip joint (Acute) Gross hematuria (Acute) Medical History Prostatitis, chronic (12/15/15) Surgical History (Updated 03/19/21 @ 07:35 by Abril Olmstead) H/O spinal fusion Social History Smoking/Tobacco Use Status: Former Tobacco Use Quit Date: 03/14/01 Smoking risk assessment performed?: Yes Alcohol Intake: current Alcohol Intake frequency: holidays/special occasions only Drug use: Daily Substance use type: marijuana Do you feel safe at home: Yes Do you feel safe in your relationship?: Yes Meds Allergies and Home Medications Allergies Allergy/AdvReac Type Severity Reaction Status Date / Time clonazepam Allergy Intermediate Other (See Unverified 03/19/21 07:36 Comment) aspirin AdvReac Intermediate ulcers Unverified 03/19/21 07:36 ibuprofen AdvReac Intermediate GI Bleeding Unverified 03/19/21 07:36 Home Medications Medication Instructions Recorded Confirmed Type pantoprazole [Protonix] 40 mg PO DAILY 11/13/15 03/19/21 History pregabalin [Lyrica] 300 mg PO BID 11/13/15 03/19/21 History Flovent HFA 2 puff INHALATION BID 12/03/15 03/19/21 History albuterol sulfate [ProAir HFA] 2 puff INHALATION Q4H PRN PRN 12/03/15 03/19/21 History Marijuana, Medical 04/16/16 07/17/18 Clinic lidocaine [Lidoderm] 1 patch TOPICAL DAILY #15 ea 05/11/20 03/17/21 Rx finasteride 5 mg tablet 5 mg PO DAILY #30 tab 03/02/21 03/19/21 Rx Exam Const General: cooperative and comfortable Neck Neck: supple Resp Effort & Inspection: normal respiratory effort Auscultation: clear to auscultation bilaterally Cardio Rate: regular rate Rhythm: regular rhythm GI Palpation: soft and no masses Neuro General: patient alert, patient awake and patient oriented x3 Results Last Vital Signs Temp 36.1 C L 03/19/21 07:27 Pulse 63 03/19/21 07:20 Resp 16 03/19/21 07:27 BP 147/76 H 03/19/21 07:27 Pulse Ox 97 03/19/21 07:27
[2021-03-19] MEDS: ceFAZolin 2 GM/50 ML BAG IVPB (09:57)
[2021-03-19] MEDS: Lidocaine 2% Jelly 6 ML SYR (10:05)
--- NOTE | 2021-03-19 10:11 | W.PM.DSUDISC ---
Discharge Plan Disposition Patient Disposition: HOME Condition: Stable Discharge Details Attending Provider: Jhony Meade Primary Care Provider: Radha Barlow V Home Meds and New Rx's Prescriptions: No Action finasteride 5 mg tablet 5 mg PO DAILY Qty: 30 RF: 0 pantoprazole [Protonix] 20 MG tablet,delayed release (DR/EC) 40 mg PO DAILY RF: 0 pregabalin [Lyrica] 25 MG capsule 300 mg PO BID RF: 0 marijuana, medical RF: 0 Flovent HFA 120 PUFF HFA aerosol inhaler 2 puff Inhalation BID RF: 0 albuterol sulfate [ProAir HFA] 200 PUFF HFA aerosol inhaler 2 puff Inhalation Q4H PRN PRN (Reason: Wheezing) RF: 0 lidocaine [Lidoderm] 5 % adhesive patch,medicated 1 patch topical DAILY Qty: 15 RF: 0 Discharge Instructions Additional Instructions: followup 6 months continue finasteride Activity:: Activity as Tolerated Shower/Bathe:: 24 hours Diet:: As Tolerated Discharge Orders Discharge Orders: Discharge Order (Routine); Ordered 03/19/21 Ordered By: Jhony Meade DS: Diagnosis Discharge Diagnosis (1) Gross hematuria: Status: Acute
--- NOTE | 2021-03-19 10:14 | W.PM.OP ---
Date of service: 03/19/21 Time of Service: 10:14 Operative Note Operative Note DATE OF PROCEDURE: 03/19/21 PRE-OP DIAGNOSIS: Gross hematuria POST-OP DIAGNOSIS: same PROCEDURE: cystoscopy SURGEON: Jhony Meade ANESTHESIA TYPE: Local By Surgeon and General:No Airway Refer to Anesthesia Record ESTIMATED BLOOD LOSS: 0 PATHOLOGY: none sent COMPLICATIONS: None Patient was transported to: same day Patient's condition: stable Implants: none Indications: This is a 69-year-old gentleman who has a history of urinary retention. He underwent transurethral resection of his prostate. No malignancy was identified on his resection. He recently had gross hematuria. He was seen in the emergency department at [facility]. On CT scan, there is a question of a bladder mass versus prostate tissue indenting on the base of the bladder. He presents for cystoscopy. Findings: no bladder tumor Procedure Description: Was brought to the operating room on 03/19/2021. He was given preoperative antibiotics. After successful induction of general anesthesia without intubation, he was placed in the dorsal lithotomy position. His genitalia was prepped. 2% Xylocaine jelly was instilled into the urethra to act as a local anesthetic. 22 [place] rigid cystoscope was passed through the urethra into the bladder. The urethra and bladder were inspected with the 30 degree lens. The pendulous, bulbar membranous urethra's appeared normal. The prostatic urethra showed some residual lateral tissue especially up towards the verumontanum. No residual median lobe tissue was identified. No active bleeding was seen from the prostate. The bladder neck was entered and the bladder mucosa was inspected. No papillary or nodular lesions were identified. He did have a rather large prominent blood vessel the the region of the prostate and traversing the area of the bladder neck. Again no active bleeding was seen from the site. Based on this examination, the bleeding seemed to be from his vascular prostate. He is already on finasteride and I would ask the patient to continue with the medication. The bladder was emptied and the scope was removed. The patient tolerated the procedure with no complications.
[2021-03-19 10:19] VITALS: BP 111/72; PULSE 58; RESP 16; TEMP 36.1; O2SAT 97
[2021-03-19 10:50] VITALS: BP 110/68; RESP 16; TEMP 36.2; O2SAT 100
--- NOTE | 2021-03-19 11:03 | W.ANESPOSTOP ---
Postoperative Evaluation Date, Time and Location Date Performed: 03/19/21 Time Performed: 11:03 Patient Location: Day Surgery Unit Vital Signs Most Recent Imported Vital Signs: Most Recent Vital Signs Temp Pulse Resp BP Pulse Ox 36.2 C L 58 L 16 110/68 100 03/19/21 10:50 03/19/21 10:19 03/19/21 10:50 03/19/21 10:50 03/19/21 10:50 Pain Score Most Recent Pain Score: Most Recent Pain Score Pain Level 0 03/19/21 10:52 Assessment Mental Status: Awake (Alert & Oriented to Patient Baseline) Airway and Respiratory Function: Patent airway with normal (patient baseline) respiratory exam Cardiovascular Function: Hemodynamically Stable Hydration Status: Adequately Hydrated Nausea & Vomiting: No Nausea or Vomiting Pain: Pt. Denies Any Pain Peripheral Nerve Block: Patient did not receive a nerve block
== END 2021-03-19 11:10 | disposition home or self-care (01) ==
PROVIDERS: PCP Family Medicine; Visit Provider Urology
PROC: 0TJB8ZZ Inspection of Bladder, Via Natural or Artificial Opening Endoscopic (ICD-10-PCS; CPT 52000; principal; 2021-03-19 09:00)
DX: R31.0 Gross hematuria (principal); R33.9 Retention of urine, unspecified; J44.9 Chronic obstructive pulmonary disease, unspecified
CPT/HCPCS: 52000; J0690; J1885; J2001; J2405; J2704

== ENCOUNTER → 2021-08-03 01:56 | Outpatient (CLI) | payer MEDICARE, MEDICAID, SELFPAY ==
--- NOTE | 2021-08-03 08:48 | DI.CT_ITS ---
Exam(s) CT HEAD WO EXAM: CT HEAD WO CLINICAL HISTORY: WORSENING VERTIGO, R42, H/O HEAD INJURY IN . TECHNIQUE: Imaging Protocol: Axial computed tomography images with coronal and sagittal reformatted images were created and reviewed COMPARISON: No exams were available for comparison FINDINGS: Ventricles and Extra axial spaces: Normal in size and morphology for the patient's age. Hemorrhage: None. Cerebral parenchyma: Normal. Midline shift: None. Brainstem/Cerebellum: Normal. Calvarium: Normal. Visualized Paranasal sinuses/Mastoids: Clear. Soft Tissues: Unremarkable. Old nasal fractures. IMPRESSION: No acute intracranial process. RADIATION DOSE DELIVERED: 771.86mGy.cm Total DLP DATA REPOSITORY: All CT scans at this facility are submitted to the National Radiology Data Registry (NRDR) Dose Index Registry (DIR) with the [employer] (A[employer]). RADIATION OPTIMIZATION: All CT scans at this facility use at least one of these dose optimization te chniques: automated exposure control; mA and/or kV adjustment per patient size (includes targeted exa ms where dose is matched to clinical indication); or iterative reconstruction.
== END ==
PROVIDERS: PCP Family Medicine; Visit Provider Nurse Practitioner Family
DX: R42 Dizziness and giddiness (principal)
CPT/HCPCS: 70450

== ENCOUNTER → 2021-09-18 07:40 | Outpatient (BNVA) | payer MEDICARE, MEDICAID, SELFPAY | PROVIDERS: PCP Family Medicine; Referring Provider Family Medicine; Visit Provider Urology | DX: R31.0 Gross hematuria (principal); R97.20 Elevated prostate specific antigen [PSA] | CPT/HCPCS: 99213 ==

== ENCOUNTER 2021-09-18 11:19 | Outpatient (REF) | payer MEDICARE, MEDICAID, SELFPAY ==
[2021-09-18 22:47] LABS: PSA, Diagnostic 6.1 ng/mL (<=6.5)
== END 2021-09-18 11:20 | disposition home or self-care (01) ==
LOC: LBN 11:19
PROVIDERS: PCP Family Medicine; Visit Provider Urology
DX: R97.20 Elevated prostate specific antigen [PSA] (principal)
CPT/HCPCS: 84153

== ENCOUNTER → 2021-10-09 00:44 | Outpatient (CLI) | payer MEDICARE, MEDICAID, SELFPAY ==
--- NOTE | 2021-10-09 | DI.MRI_ITS ---
Exam(s) MR LOWER JOINT LT WO EXAM: MR LOWER JOINT LT WO CLINICAL HISTORY: LEFT LEG PAINM79.605, HIP PAIN 5 YEARS, ? LABRUM TEAR TECHNIQUE: Multiplanar multisequence MRI of hip was performed COMPARISON: CR XR HIP LT AP LAT ONLY from 08/07/2020 FINDINGS: The examination is limited due to patient motion artifact. Bones: The patient has a left total hip replacement. This limits evaluation of the left hip. No ev idence of an acute fracture. No bone marrow edema is seen. The SI joints and symphysis pubis are wel l maintained. Musculotendinous structures: Musculotendinous structures demonstrate no abnormality. There is extens shan diverticulosis seen in the sigmoid colon. The prostate gland is enlarged. IMPRESSION: 1. No acute abnormalities identified. 2. Status post left total hip replacement. 3. Sigmoid diverticulosis. No evidence of a diverticulitis. 4. Prostatic enlargement. DATA REPOSITORY:
== END ==
PROVIDERS: PCP Family Medicine; Visit Provider Family Medicine
DX: M25.552 Pain in left hip; K57.30 Diverticulosis of large intestine without perforation or abscess without bleeding; N40.0 Benign prostatic hyperplasia without lower urinary tract symptoms; Z96.642 Presence of left artificial hip joint
CPT/HCPCS: 73721

== ENCOUNTER → 2021-10-28 01:04 | Outpatient (CLI) | payer MEDICARE, MEDICAID, SELFPAY ==
--- NOTE | 2021-10-28 10:04 | DI.RAD_ITS ---
Exam(s) XR RIBS LT W PA LAT CHEST EXAM: XR RIBS LT W PA LAT CHEST CLINICAL HISTORY: LT SIDED RIB PAIN R07.81, FALL 2 WEEKS AGO TECHNIQUE: COMPARISON: CR XR CHEST 2V PA LATERAL from 10/11/2019 FINDINGS: PA and lateral views of the chest and 4 additional views of the left ribs were obtained. The lungs a re predominantly clear with some changes of scarring, no change in appearance comparison with prior e xamination of September 2019. No pleural effusion or pneumothorax. No rib fracture is identified. IMPRESSION: No evidence of acute process. RADIATION DOSE DELIVERED: Total DLP
== END ==
PROVIDERS: PCP Family Medicine; Visit Provider Nurse Practitioner Family
DX: R07.81 Pleurodynia (principal); Z91.81 History of falling
CPT/HCPCS: 71046; 71100

== ENCOUNTER 2022-01-01 07:05 | Emergency (ER) | payer MEDICARE, MEDICAID, SELFPAY ==
[2022-01-01] VITALS (41 sets, daily range): BP systolic 130–170; BP diastolic 66–98; PULSE 81–132; RESP 11–33; TEMP 37.3; O2SAT 92–98
--- NOTE | 2022-01-01 07:00 | RT.EKG_ITS ---
APPROVED REPORT Exam: Resting ECG Reason for Exam: Dyspnea Patient Location: E HR:117 bpm ECG Measurements Heart Rate 117 AXIS MD [id number] P [id number] QRSd 78 QRS 67 QT 304 T 57 QTc 425 Conclusion Atrial fibrillation...V-rate 77-136, irreg A-activity. Afib. Normal axis. No STEMI. I have reviewed and interpreted ECG and agree with software generated interpretation.
--- NOTE | 2022-01-01 07:37 | W.ED.GENAD ---
Discharge Plan Disposition Patient Disposition: HOME Condition: Improving Discharge Details Clinical Impression: COVID-19, New onset atrial fibrillation Primary Care Provider: Radha Barlow V ED Provider: Anen Ferris Home Meds and New Rx's Prescriptions: New metoprolol tartrate 25 mg tablet 25 mg PO BID Qty: 60 0RF Eliquis 5 mg tablet 5 mg PO BID Qty: 60 0RF Rx Instructions: Take 2 tabs twice daily for 1 week, then 1 tab twice daily Continued pantoprazole [Protonix] 20 MG tablet,delayed release (DR/EC) 40 mg PO DAILY pregabalin [Lyrica] 25 MG capsule 300 mg PO BID marijuana, medical 0RF diclofenac sodium 1 % Gel 2 g TOPICAL BID Rx Instructions: apply to single elbow, wrist or hand; for hand includes palm/fingers/back of hand finasteride 5 mg tablet 5 mg PO DAILY Qty: 30 12RF sildenafil 100 mg tablet 100 mg PO DAILY PRN (Reason: sexual activity) Qty: 6 12RF Rx Instructions: administer 30 minutes to 4 hours before activity fluticasone propionate [Flovent HFA] 120 PUFF HFA aerosol inhaler 2 puff Inhalation BID albuterol sulfate [ProAir HFA] 200 PUFF HFA aerosol inhaler 2 puff Inhalation Q4H PRN PRN (Reason: Wheezing) lidocaine [Lidoderm] 5 % adhesive patch,medicated 1 patch topical DAILY Qty: 15 0RF Rx Instructions: leave on most painful area for up to 12 hrs Discharge Instructions Instructions: A-fib (Atrial Fibrillation) (ED), COVID-19 (Coronavirus Disease 2019) (ED) Additional Instructions: You are positive for the Covid-19 virus. You were given the monoclonal antibody infusion in the emergency department which can decrease the risk of progression to severe illness or related to the Covid-19 virus. The remainder of your blood tests and imaging today are reassuring and show no evidence of acute concerning or significant findings. You were also noted to have an abnormal heart rhythm in the emergency department today called atrial fibrillation. Your EKG was reviewed with [facility] cardiology and they are recommending to start you on a medication to decrease your heart rate called metoprolol and the blood thinner to decrease the risk of blood clot called Eliquis. Prescriptions for these medications have been sent electronically to your pharmacy to take as directed. You have also been placed on care management's list to arrange for a follow-up appointment with cardiology for reevaluation and consideration for cardioversion (a procedure to shock your heart into a normal rhythm) if indicated. Continue your regular medications as directed. Drink plenty of fluids and get plenty of rest. Follow-up with your primary care doctor in 1 week. Return to the emergency department with any worsening or new concerning symptoms. Discharge Data Discharge Physician: Anne Ferris Medical Decision Making 0708 -- 70-year-old male with a history of former tobacco smoking, GERD, COPD and medical marijuana use who presents with shortness of breath and chest tightness since last night. Recent positive COVID contact. Blood pressure mildly hypertensive, remainder vitals within normal limits on arrival. EKG on arrival notes a rate of 117 and atrial fibrillation. Heart rate now ranging between 100s-130s and appears consistent with A. fib on the monitor. Last EKG here on file from 2009 is sinus rhythm. Patient denies any known history of atrial fibrillation. He denies any alcohol use. Patient has a harsh and productive sounding cough on exam but overall lung sounds are clear without significant wheezing or rhonchi. His oxygen saturation is mid 90s on room air. He has no lower extremity swelling. Differential diagnosis includes A. fib with RVR, COVID, pneumonia, COPD exacerbation, bronchitis, ACS. History and presentation does not appear consistent with dissection or PE. We will place an IV, bolus IV fluids, screening labs including dimer, BNP, will obtain portable chest x-ray, give a DuoNeb and IV Cardizem and reassess. 0855 --labs and imaging reviewed. Normal white blood cell count. Negative troponin. BNP elevated at 1781. D-dimer essentially negative per age-adjusted cut off but is slightly elevated at 762. Covid POSITIVE. Heart rate remains in the 100s to 120s. Considering his persistent tachycardia which may be related to new onset atrial fibrillation, in the setting of COVID, will obtain CT chest to rule out PE. 0910 --discussed with [facility] cardiology -- regarding new onset afib -- recommend starting metoprolol tartrate 25 mg every 6 hours p.o. if inpatient and can transition to 25 mg p.o. twice daily upon discharge. Recommend starting anticoagulation for a minimum of 3 weeks prior to cardioversion when follow-up with cardiology outpatient. 1130 --CT chest negative for PE. Heart rate 80s and blood pressure within normal limits. Patient reassessed and feels much better and he feels like to go home. Breathing comfortable he appears in no acute plan events. History discussed with pharmacy and recommend normal antibody monovision and is starting Eliquis. Given monoclonal he was at infusion without location. Cough prescription for Toprol all and from Eliquis sent electronically to his pharmacy chronic he was placed. Care management/monitoring for a follow-up appointment with cardiology, most specifically, extra physiology of consideration for cardioversion if they have needed. Usual and customary return precautions given prior to discharge. Since Medical Records Medical records reviewed: Yes I reviewed the patient's medical records. Imaging Data Radiologic Study: Radiologist's impression: ?XR PORTABLE CHEST AP CLINICAL HISTORY: ? cough, sob, r/o acute disease. ? TECHNIQUE:? 2D digital imaging was performed. COMPARISON:? CR XR RIBS LT W PA ? LAT CHEST from 10/28/2021 FINDINGS: Single AP portable view. Heart size is upper normal.? The mediastinum is not widened. COPD findings.? Scarring in the left lung adjacent to the left heart border is again noted.? No right lung findings.? No pulmonary edema. IMPRESSION: COPD-emphysematous changes.? Left lung scarring.? No acute infiltrates. CT CHEST PE CTA CLINICAL HISTORY: ? sob, chest tightness, Covid +, r/o PE. ? TECHNIQUE:? Imaging Protocol: CT angiography of the chest was performed using pulmonary embolus protocol.? Multi planar reconstructions were performed. CONTRAST MATERIAL:? Intravenous: Omnipaque 350 Contrast volume: 100 cc COMPARISON:? CT ABD ? PELVIS WO CONTRAST from 05/31/2016 CR XR PORTABLE CHEST AP from 01/01/2022 FINDINGS: CHEST: PULMONARY ARTERIES: There are no intraluminal filling defects to suggest acute pulmonary emboli. LUNGS: There are advanced the emphysematous changes multiple bullae in both lungs, more so in the upper half of both lung ryan.? There are no confluent infiltrates nor evidence of pulmonary infarction.. There are no pleural effusions. MEDIASTINUM: There is no hilar nor mediastinal adenopathy. Visualized thyroid unremarkable. CARDIAC: Heart size is upper normal.? There is no pericardial effusion.Caliber of the thoracic aorta is within normal limits. No evidence of dissection.? There is no significant shift of the interventricular septum. PARTIALLY VISUALIZED UPPERMOST ABDOMEN: No obvious findings OSSEOUS: No significant osseous lesions.. IMPRESSION: 1. No evidence of acute pulmonary emboli.? No evidence of pulmonary infarction.No pleural effusions. 2. Advanced emphysematous lung changes with multiple confluent bullae in both upper lung zones. 3. No evidence of aortic dissection. Lab Data Lab results reviewed: Yes I reviewed the patient's lab results. Labs: Laboratory Tests Range/Units 01/01/22 01/01/22 01/01/22 07:20 07:20 07:20 WBC (4.4-10.8) 10^3/uL 8.54 RBC (4.36-5.78) 10^6/uL 5.28 Hgb (13.5-17.5) g/dL 15.1 Hct (40.0-50.0) % 46.1 MCV (80-95) fL 87 MCH (27.0-33.0) pg 28.6 MCHC (32.0-36.0) % 32.8 RDW (11.8-14.1) % 13.2 Plt Count (130-400) 10^3/uL 243 MPV (8.0-11.0) fL 10.4 Immature Gran % 0.5 Neutrophils % 70.3 Lymphocytes % 13.8 Monocytes % 13.3 Eosinophils % 1.3 Basophils % 0.8 Nucleated RBC % (0.0-0.3) % 0.0 Absolute Neutrophils (1.2-6.7) 10^3/uL 6.00 Absolute Lymphocytes (1.2-3.4) 10^3/uL 1.18 L Absolute Monocytes (0.1-0.8) 10^3/uL 1.14 H Absolute Eosinophils (0.0-0.7) 10^3/uL 0.11 Absolute Basophils (0.0-0.2) 10^3/uL 0.07 D-Dimer (<500) ng/mlFEU 762 H Sodium (136-145) mmol/L 136 Potassium (3.5-5.1) mmol/L 4.1 Chloride (98-107) mmol/L 99 Carbon Dioxide (21.0-32.0) mmol/L 26.5 Anion Gap (3-11) mmol/L 10.5 BUN (7-18) mg/dL 18 Creatinine (0.70-1.30) mg/dL 1.2 Est GFR (CKD-EPI 2020) (mL/min/1.73m2) 65.06 Glucose (74-106) mg/dL 89 Calcium (8.5-10.1) mg/dL 9.1 Magnesium (1.8-2.4) mg/dL 1.8 Total Bilirubin (0.2-1.0) mg/dL 0.4 AST (15-37) U/L 12 L ALT (16-63) U/L 10 L Alkaline Phosphatase (46-116) U/L 87 Troponin I (<or=60) ng/L < 50 NT-Pro-B Natriuret Pep (<300) pg/mL 1781 H Total Protein (6.4-8.2) g/dL 7.5 Albumin (3.4-5.0) g/dL 3.7 COVID-19 Source SARS-CoV-2 (PCR) (Negative) Influenza Type A (PCR) (Negative) Influenza Type B (PCR) (Negative) RSV (PCR) (Negative) Range/Units 01/01/22 01/01/22 07:25 07:51 WBC (4.4-10.8) 10^3/uL RBC (4.36-5.78) 10^6/uL Hgb (13.5-17.5) g/dL Hct (40.0-50.0) % MCV (80-95) fL MCH (27.0-33.0) pg MCHC (32.0-36.0) % RDW (11.8-14.1) % Plt Count (130-400) 10^3/uL MPV (8.0-11.0) fL Immature Gran % Neutrophils % Lymphocytes % Monocytes % Eosinophils % Basophils % Nucleated RBC % (0.0-0.3) % Absolute Neutrophils (1.2-6.7) 10^3/uL Absolute Lymphocytes (1.2-3.4) 10^3/uL Absolute Monocytes (0.1-0.8) 10^3/uL Absolute Eosinophils (0.0-0.7) 10^3/uL Absolute Basophils (0.0-0.2) 10^3/uL D-Dimer (<500) ng/mlFEU Sodium (136-145) mmol/L Potassium (3.5-5.1) mmol/L Chloride (98-107) mmol/L Carbon Dioxide (21.0-32.0) mmol/L Anion Gap (3-11) mmol/L BUN (7-18) mg/dL Creatinine (0.70-1.30) mg/dL Est GFR (CKD-EPI 2020) (mL/min/1.73m2) Glucose (74-106) mg/dL Calcium (8.5-10.1) mg/dL Magnesium (1.8-2.4) mg/dL Total Bilirubin (0.2-1.0) mg/dL AST (15-37) U/L ALT (16-63) U/L Alkaline Phosphatase (46-116) U/L Troponin I (<or=60) ng/L NT-Pro-B Natriuret Pep (<300) pg/mL Cancelled Total Protein (6.4-8.2) g/dL Albumin (3.4-5.0) g/dL COVID-19 Source Not Applicable SARS-CoV-2 (PCR) (Negative) Positive A Influenza Type A (PCR) (Negative) Negative Influenza Type B (PCR) (Negative) Negative RSV (PCR) (Negative) Negative ECG Data Attestation: I personally reviewed and interpreted this ECG (s) as follows: Interpretation: Rate of 117, atrial fibrillation, no STEMI. HPI General Mode of arrival: ambulatory. Date/Time Provider Initiated Documentation: 01/01/22 07:36. Limitations to Documentation: no limitations. Information obtained by: patient. HPI Narrative: Patient is a 70-year-old male with a history of GERD, COPD, with medical marijuana use presents for shortness of breath and chest tightness since last night. Patient states he has a chronic cough with his COPD but states it feels worse with more chest congestion and difficulty bringing up sputum. Patient states he was exposed to his son recently who was diagnosed with COVID several days ago. Patient has received a total of 3 COVID vaccines but has not received the recent COVID booster yet. Patient denies fever, nasal congestion, sore throat, vomiting or diarrhea. Related Data Home Medications Medication Instructions Recorded Confirmed pantoprazole 20 mg tablet,delayed 40 mg PO DAILY 09/01/16 10/21/22 release (Protonix) pregabalin 25 mg capsule (Lyrica) 300 mg PO BID 11/13/15 01/01/22 albuterol sulfate 90 mcg/actuation 2 puff inhalation Q4H PRN PRN 12/03/15 01/01/22 aerosol inhaler (ProAir HFA) Wheezing fluticasone propionate 220 2 puff inhalation BID 12/03/15 01/01/22 mcg/actuation HFA aerosol inhaler (Flovent HFA) lidocaine 5 % topical patch 1 patch topical DAILY #15 ea 05/11/20 01/01/22 (Lidoderm) diclofenac sodium 1 % topical gel 2 g topical BID 08/25/21 01/01/22 finasteride 5 mg tablet 5 mg PO DAILY prostate bleeding 10/15/21 01/01/22 #30 tabs sildenafil 100 mg tablet 100 mg PO DAILY PRN sexual 12/18/21 01/01/22 activity #6 tabs apixaban 5 mg tablet (Eliquis) 5 mg PO BID #60 tabs 01/01/22 metoprolol tartrate 25 mg tablet 25 mg PO BID #60 tabs 01/01/22 Previous Rx's Medication Instructions Recorded lidocaine 5 % topical patch 1 patch topical DAILY #15 ea 05/11/20 (Lidoderm) finasteride 5 mg tablet 5 mg PO DAILY prostate bleeding 10/15/21 #30 tabs sildenafil 100 mg tablet 100 mg PO DAILY PRN sexual 12/18/21 activity #6 tabs apixaban 5 mg tablet (Eliquis) 5 mg PO BID #60 tabs 01/01/22 metoprolol tartrate 25 mg tablet 25 mg PO BID #60 tabs 01/01/22 Allergies Allergy/AdvReac Type Severity Reaction Status Date / Time NSAIDS (Non-Steroidal Allergy Severe Verified 01/01/22 07:17 Anti-Inflamma clonazepam Allergy Intermediate Other (See Unverified 01/01/22 07:17 Comment) naltrexone Allergy Intermediate Verified 01/01/22 07:17 aspirin AdvReac Intermediate ulcers Unverified 01/01/22 07:17 ibuprofen AdvReac Intermediate GI Bleeding Unverified 01/01/22 07:17 General Stated Complaint: SOB ANTWAN: 2 Review of Systems All systems reviewed & are unremarkable except as noted in HPI and below Constitutional Constitutional: Reports as per HPI, Denies chills and Denies fever(s) Eyes Eyes: Denies blurry vision ENT Ears, Nose, Mouth, and Throat: Denies dizziness, Denies sore throat and Denies throat swelling Cardiovascular Cardiovascular: Reports chest pain (chest tightness) and Reports dyspnea Respiratory Respiratory: Denies cough and Reports dyspnea Gastrointestinal Gastrointestinal: Denies abdominal pain, Denies diarrhea and Denies vomiting Genitourinary Genitourinary: Denies hematuria and Denies dysuria Musculoskeletal Musculoskeletal: Denies back pain and Denies numbness Integumentary/Breasts Skin/Breast: Denies lesions and Denies rash Neurologic Neurologic: Denies dizziness, Denies localized weakness and Denies numbness Allergic/Immunologic Allergic/Immunologic: Denies throat swelling PFSH All Active Problems (Updated 01/01/22 @ 11:02 by Anne Ferris DO) COVID-19 (Acute) New onset atrial fibrillation (Acute) Left hip pain (Acute) Neoplasm of unspecified behavior of bone, soft tissue, and skin (Acute) Chronic obstructive pulmonary disease (Chronic) Gastroesophageal reflux disease without esophagitis (Acute) Medical marijuana use (Acute) High prostate specific antigen (PSA) (Acute) Acute exacerbation of chronic low back pain (Acute) Chronic hip pain after total replacement of left hip joint (Acute) Medical History Abnormal radiologic findings on diagnostic imaging of renal pelvis, ureter, or bladder Actinic keratosis Benign prostatic hyperplasia Complex regional pain syndrome of hand s/p crush injury 1991 Generalized osteoarthrosis Gout Gross hematuria Hand pain, left History of substance abuse History of tobacco use Left lumbar radiculopathy Leg pain, left Neuropathy Prostatitis, chronic (12/15/15) Reflex sympathetic dystrophy Renal cyst, right Shoulder pain, right Urine retention Vertigo Surgical History H/O cystoscopy H/O prostatectomy H/O spinal fusion History of hip replacement Left. 10/27/15 Dr. Thomas Status post subacromial decompression right shoulder, biceps tenotomy by Dr. Adams Social History Smoking/Tobacco Use Status: Former Tobacco Use Smoking risk assessment performed?: Yes Alcohol Intake: former Drug use: Daily Substance use type: marijuana Do you feel safe at home: Yes Do you feel safe in your relationship?: Yes Exam Const General: cooperative, healthy appearing and no acute distress Orientation: alert, awake and oriented x3 HENMT Head: normal to inspection Face and sinus: normal facial exam Eyes General: appearance normal, both eyes and all related structures Pupils: PERRL EOM: EOM intact bilaterally Neck Neck: normal visual inspection and No submandibular swelling Lymphatic: no lymphadenopathy noted Chest Chest: normal inspection of the chest and no tenderness Resp Effort & Inspection: normal respiratory effort, able to speak in complete sentences and cough Quality of cough: wet Auscultation: clear to auscultation bilaterally Cardio Rate: tachycardic Rhythm: abnormal rhythm irregularly irregular GI Inspection: normal to inspection Palpation: soft, not firm, not rigid and nontender Auscultation: hypoactive bowel sounds Male General Exam: Yes normal external exam Back/Spine/Pelvis Thoracic/Lumbar Spine: thoracic and lumbar spine normal to inspection Pelvis: no pain with anterior-posterior compression Skin General skin exam: no rashes or lesions noted Neuro General: patient alert, patient awake and patient oriented x3 Cognition: normal cognition Speech: speech normal Motor: muscle tone normal throughout Sensory Exam: no sensory deficits noted Extrem General: normal to inspection, full ROM, capillary refill normal, no calf tenderness bilaterally and no edema Psych Appearance: grossly normal Mental Status: mental status grossly normal Speech and Movement: speech and movement normal Affect: normal affect Course Vital Signs Vital signs: Vital Signs Temperature 99.1 F 01/01/22 07:11 Pulse 85 01/01/22 07:11 Respiratory Rate 20 01/01/22 07:11 Blood Pressure 144/98 H 01/01/22 07:11 Pulse Oximetry 97 01/01/22 07:11 Temperature 99.1 F 01/01/22 07:11 Temperature Source Skin 01/01/22 07:11 Pulse 85 01/01/22 07:11 Respiratory Rate 18 01/01/22 07:20 Respiratory Effort 01/01/22 07:20 Respiratory Depth Normal 01/01/22 07:20 Respiratory Pattern Normal 01/01/22 07:20 Blood Pressure 144/98 H 01/01/22 07:11 Blood Pressure Position Supine 01/01/22 07:11 Pulse Oximetry 97 01/01/22 07:11 Oxygen Delivery Method Room Air 01/01/22 07:11 Oxygen Flow Rate 0 01/01/22 07:11 Pain Level 10 01/01/22 07:20
--- NOTE | 2022-01-01 07:45 | DI.RAD_ITS ---
Exam(s) XR PORTABLE CHEST AP EXAM: XR PORTABLE CHEST AP CLINICAL HISTORY: cough, sob, r/o acute disease. TECHNIQUE: 2D digital imaging was performed. COMPARISON: CR XR RIBS LT W PA LAT CHEST from 10/28/2021 FINDINGS: Single AP portable view. Heart size is upper normal. The mediastinum is not widened. COPD findings. Scarring in the left lung adjacent to the left heart border is again noted. No right lung findings. No pulmonary edema. IMPRESSION: COPD-emphysematous changes. Left lung scarring. No acute infiltrates. DATA REPOSITORY: RADIATION DOSE DELIVERED:
[2022-01-01 08:08] LABS: Abs Immature Grans 0.04 10^3/uL (0.0-0.06); Absolute Basophil Count 0.07 10^3/uL (0.0-0.2); Absolute Eosinophil Count 0.11 10^3/uL (0.0-0.7); Absolute Lymphocyte Count 1.18 10^3/uL (1.2-3.4); Absolute Monocyte Count 1.14 10^3/uL (0.1-0.8); Basophils % 0.8; Eosinophils % 1.3; HCT 46.1 % (40.0-50.0); HGB 15.1 g/dL (13.5-17.5); Immature Grans % 0.5; Lymphocytes % 13.8; MCH 28.6 pg (27.0-33.0); MCHC 32.8 % (32.0-36.0); MCV 87 fL (80-95); MPV 10.4 fL (8.0-11.0); Monocytes % 13.3; Neutrophils % 70.3; Platelet Count 243 10^3/uL (130-400); RBC 5.28 10^6/uL (4.36-5.78); RDW 13.2 % (11.8-14.1); RDW-SD 42.2 fL; WBC 8.54 10^3/uL (4.4-10.8)
[2022-01-01] MEDS: dilTIAZem 25 MG/5 ML VIAL 10 MG IVP (08:24)
[2022-01-01] MEDS: Albuterol/Ipratropium 3 ML UPD VIAL UPD (08:24)
[2022-01-01] MEDS: Normal Saline 250 ML 500 ML IV (08:26)
[2022-01-01 08:34] LABS: ALT 10 U/L (16-63); AST 12 U/L (15-37); Albumin 3.7 g/dL (3.4-5.0); Alkaline Phosphatase 87 U/L (46-116); Anion Gap 10.5 mmol/L (3-11); BUN 18 mg/dL (7-18); Bilirubin, Total 0.4 mg/dL (0.2-1.0); CO2 26.5 mmol/L (21.0-32.0); CREATININE 1.2 mg/dL (0.70-1.30); Calcium 9.1 mg/dL (8.5-10.1); Chloride 99 mmol/L (98-107); Estimated GFR 65.06 (mL/min/1.73m2); Glucose 89 mg/dL (74-106); Magnesium 1.8 mg/dL (1.8-2.4); NT-proBNP 1781 pg/mL (<300); Potassium 4.1 mmol/L (3.5-5.1); Sodium 136 mmol/L (136-145); Total Protein 7.5 g/dL (6.4-8.2); Troponin I < 50 ng/L (<or=60)
[2022-01-01 08:47] LABS: Influenza A PCR Negative (Negative); Influenza B PCR Negative (Negative); RSV PCR Negative (Negative)
[2022-01-01 08:53] LABS: D-Dimer 762 ng/mlFEU (<500)
[2022-01-01 08:54] LABS: COVID-19 PCR Positive (Negative)
[2022-01-01] MEDS: Metoprolol 25 MG TAB PO (09:21)
--- NOTE | 2022-01-01 09:32 | DI.CT_ITS ---
Exam(s) CT CHEST PE CTA EXAM: CT CHEST PE CTA CLINICAL HISTORY: sob, chest tightness, Covid +, r/o PE. TECHNIQUE: Imaging Protocol: CT angiography of the chest was performed using pulmonary embolus chloe col. Multi planar reconstructions were performed. CONTRAST MATERIAL: Intravenous: Omnipaque 350 Contrast volume: 100 cc COMPARISON: CT ABD PELVIS WO CONTRAST from 05/31/2016 CR XR PORTABLE CHEST AP from 01/01/2022 FINDINGS: CHEST: PULMONARY ARTERIES: There are no intraluminal filling defects to suggest acute pulmonary emboli. LUNGS: There are advanced the emphysematous changes multiple bullae in both lungs, more so in the upp er half of both lung ryan. There are no confluent infiltrates nor evidence of pulmonary infarction .. There are no pleural effusions. MEDIASTINUM: There is no hilar nor mediastinal adenopathy. Visualized thyroid unremarkable. CARDIAC: Heart size is upper normal. There is no pericardial effusion.Caliber of the thoracic aorta is within normal limits. No evidence of dissection. There is no significant shift of the interventri cular septum. PARTIALLY VISUALIZED UPPERMOST ABDOMEN: No obvious findings OSSEOUS: No significant osseous lesions.. IMPRESSION: 1. No evidence of acute pulmonary emboli. No evidence of pulmonary infarction.No pleural effusions. 2. Advanced emphysematous lung changes with multiple confluent bullae in both upper lung zones. 3. No evidence of aortic dissection. RADIATION DOSE DELIVERED: 410.9mGy.cm Total DLP DATA REPOSITORY: All CT scans at this facility are submitted to the National Radiology Data Registry (NRDR) Dose Index Registry (DIR) with the [employer] (A[employer]). RADIATION OPTIMIZATION: All CT scans at this facility use at least one of these dose optimization te chniques: automated exposure control; mA and/or kV adjustment per patient size (includes targeted exa ms where dose is matched to clinical indication); or iterative reconstruction.
[2022-01-01] MEDS: Omnipaque 350 MG/ML 500 ML BTL-Imaging package 100 ML IJ (09:37)
--- NOTE | 2022-01-01 12:25 | NUR.NOTE ---
Nursing Note: PT info given to care management for follow up [place] [facility] [place] new onset AFIB. Lizbeth, ED
== END 2022-01-01 12:23 | disposition home or self-care (01) ==
PROVIDERS: Emergency Provider Physician Assistant; PCP Family Medicine
DX: U07.1 COVID-19 (principal); I48.91 Unspecified atrial fibrillation; J44.9 Chronic obstructive pulmonary disease, unspecified; Z79.51 Long term (current) use of inhaled steroids; Z87.891 Personal history of nicotine dependence; R06.02 Shortness of breath
CPT/HCPCS: 36415; 71275; 80053; 87637; 93005; 94640; 96361; 96374; 96375; 99284; 99285; Q0222; 71045; 83735; 83880; 84484; 85025; 85379; 93010; J7620

== ENCOUNTER → 2022-02-09 01:52 | Outpatient (CLI) | payer MEDICARE, MEDICAID, SELFPAY ==
--- NOTE | 2022-02-09 | DI.RAD_ITS ---
Exam(s) XR CHEST 2V PA LATERAL EXAM: XR CHEST 2V PA LATERAL CLINICAL HISTORY: COUGH, R05.8 TECHNIQUE: 2D digital imaging was performed of the chest. Two images were obtained. PA and lateral views were obtained. COMPARISON: CR XR CHEST 2V PA LATERAL from 10/11/2019 CR XR PORTABLE CHEST AP from 01/01/2022 FINDINGS: MEDIASTINUM: Normal. HEART: Normal. PULMONARY VASCULATURE: Normal. LUNGS: Emphysematous changes are seen in the lungs. No focal consolidating infiltrates are present. PLEURAL SPACE: No pleural effusion or pneumothorax. BONE:Within normal limits for the patient's age. OTHER FINDINGS:Normal. IMPRESSION: No acute pulmonary findings. DATA REPOSITORY: RADIATION DOSE DELIVERED:
== END ==
PROVIDERS: PCP Family Medicine; Visit Provider Nurse Practitioner Family
DX: R05.8 Other specified cough (principal)
CPT/HCPCS: 71046

== ENCOUNTER 2022-07-23 09:50 | Outpatient (CLI) | payer MEDICARE, MEDICAID, SELFPAY ==
--- NOTE | 2022-07-23 | DI.US_ITS ---
Exam(s) US LOWER EXTREMITY VENOUS LT EXAM: US LOWER EXTREMITY VENOUS LT CLINICAL HISTORY: LEFT LEG PAIN, M79.605, SWELLING LT ANTERIOR THIGH. TECHNIQUE: Lower extremity venous ultrasound performed using grayscale, color-flow, and spectral Do ppler analysis. COMPARISON: No exams were available for comparison FINDINGS: The common femoral, femoral and popliteal veins demonstrate normal compressibility, augmentation, and color Doppler. The posterior tibial veins are patent. No saphenous vein thrombosis or other superfi cial venous thrombosis is seen. No hematoma or Yeager's cyst is seen. IMPRESSION: Negative lower extremity ultrasound. No evidence of DVT. DATA REPOSITORY:
== END 2022-07-23 10:10 ==
LOC: DI 09:51
PROVIDERS: PCP Family Medicine; Visit Provider Nurse Practitioner Family
DX: M79.605 Pain in left leg (principal); R22.42 Localized swelling, mass and lump, left lower limb
CPT/HCPCS: 93971

== ENCOUNTER → 2022-07-29 13:25 | Outpatient (BNVA) | payer MEDICARE, MEDICAID, SELFPAY | PROVIDERS: PCP Family Medicine; Referring Provider Family Medicine; Visit Provider Urology | DX: R31.0 Gross hematuria (principal); R97.20 Elevated prostate specific antigen [PSA] | CPT/HCPCS: 36415; 99213 ==

== ENCOUNTER 2022-07-29 14:58 | Outpatient (REF) | payer MEDICARE, MEDICAID, SELFPAY ==
[2022-07-30 19:17] LABS: PSA, Diagnostic 4.2 ng/mL (<=6.5)
== END 2022-07-29 14:59 | disposition home or self-care (01) ==
LOC: LBN 14:58
PROVIDERS: PCP Family Medicine; Visit Provider Urology
DX: R97.20 Elevated prostate specific antigen [PSA] (principal)
CPT/HCPCS: 84153

== ENCOUNTER 2022-08-04 02:08 | Outpatient (CLI) | payer MEDICARE, MEDICAID, SELFPAY ==
--- NOTE | 2022-08-04 06:45 | DI.NM_ITS ---
Exam(s) NM BONE SCAN 3 PHASE EXAM: NM BONE SCAN 3 PHASE CLINICAL HISTORY: LT HIP PAIN,M25.552,Z96.642,S/P HIP REPLACEMENT. TECHNIQUE: Injected Dose: 25 mCi Tc-99m MDP COMPARISON: CR XR HIP LT AP LAT ONLY from 08/07/2020 NM NM BONE SCAN 3 PHASE from 08/13/2020 MR MR LUMBAR SPINE WO/W from 11/10/2020 MR MR LOWER JOINT LT WO from 10/09/[address] CHEST PE CTA from 01/01/2022 FINDINGS: Perfusion phase: There is no asymmetric uptake in. Blood Pool images: No asymmetry. Unchanged from previous study. Delayed images: Findings are identical to the images of 08/13/2020 with mild increased radiopharmaceu tical accumulation around the inferior tip of the femoral shaft component of the left hip prosthesis. There is also a small focus of increased uptake in the lower lumbar spine right-side which is either related to right-sided facet arthropathy or asymmetric narrowing of the intervertebral disc space on the right side at what is probably L4-5 level. No other abnormal uptake seen in the skeleton. IMPRESSION: Findings on this nuclear bone scan or identical to the bone scan performed 08/13/2020. There is mild increased focal uptake seen around the inferior aspect of the femoral shaft component of the left hi p prosthesis. May represent an element of loosening. No evidence of osteomyelitis on this triple ph ase study. Persistent unchanged right of center uptake in the lower lumbar spine L4-5 level which is most probab ly degenerative, unchanged. DATA REPOSITORY:
== END 2022-08-04 02:28 ==
LOC: DI 02:08
PROVIDERS: PCP Family Medicine; Visit Provider Student in an Organized Health Care Education/Training Program
DX: M25.552 Pain in left hip; Z96.642 Presence of left artificial hip joint; Z47.1 Aftercare following joint replacement surgery; T84.091A Other mechanical complication of internal left hip prosthesis, initial encounter
CPT/HCPCS: 78315

== ENCOUNTER → 2022-08-05 08:43 | Outpatient (BNVA) | payer MEDICARE, MEDICAID, SELFPAY | PROVIDERS: PCP Family Medicine; Referring Provider Family Medicine; Visit Provider Student in an Organized Health Care Education/Training Program | DX: M25.552 Pain in left hip (principal); G89.29 Other chronic pain; Z96.642 Presence of left artificial hip joint | CPT/HCPCS: 99215 ==

== ENCOUNTER 2022-08-12 02:22 | Outpatient (CLI) | payer MEDICARE, MEDICAID, SELFPAY ==
--- NOTE | 2022-08-12 07:45 | DI.CT_ITS ---
Exam(s) CT LOWER EXTREMITY LT WO EXAM: CT LOWER EXTREMITY LT WO CLINICAL HISTORY: L SAPPHIRE PAIN. LTHIP PAIN, M25.552. TECHNIQUE: Imaging Protocol: Axial computed tomography images with coronal and sagittal reformatted images were created and reviewed. CONTRAST MATERIAL: None COMPARISON: NM NM BONE SCAN 3 PHASE from 08/04/2022 FINDINGS: There are prominent benign-appearing partially confluent cystic structures in superior aspect of the acetabulum adjacent iliac bone. Screws supporting the acetabular component of prosthesis do not appe ar to traverse the cystic structures. There does not appear to be prominent lucent areas around thes e supporting screws. With respect to the femoral component, there are no fractures in the femur. No prominent lucent area around the femoral component. No evidence of osteomyelitis. No significant bone lesions in the vis ualized femur. IMPRESSION: Minimal findings as described above. RADIATION DOSE DELIVERED: 337.33mGy.cm Total DLP DATA REPOSITORY: All CT scans at this facility are submitted to the National Radiology Data Registry (NRDR) Dose Index Registry (DIR) with the [employer] ([employer]). RADIATION OPTIMIZATION: All CT scans at this facility use at least one of these dose optimization te chniques: automated exposure control; mA and/or kV adjustment per patient size (includes targeted exa ms where dose is matched to clinical indication); or iterative reconstruction.
== END 2022-08-12 02:42 ==
LOC: DI 02:23
PROVIDERS: PCP Family Medicine; Visit Provider Student in an Organized Health Care Education/Training Program
DX: M25.552 Pain in left hip (principal)
CPT/HCPCS: 73700

== ENCOUNTER → 2022-09-09 14:30 | Outpatient (BNVA) | payer MEDICARE, MEDICAID, SELFPAY | PROVIDERS: PCP Family Medicine; Referring Provider Family Medicine; Visit Provider Student in an Organized Health Care Education/Training Program | DX: G89.29 Other chronic pain (principal); Z96.642 Presence of left artificial hip joint | CPT/HCPCS: 20611; 26011 ==

== ENCOUNTER 2022-10-08 01:26 | Outpatient (CLI) | payer MEDICARE, MEDICAID, SELFPAY ==
[2022-10-08 13:49] LABS: ESR 16 mm/hr (0-20)
[2022-10-08 14:44] LABS: C-Reactive Protein 0.64 mg/dL (0.0-0.3)
[2022-10-13 00:30] LABS: Chromium, Serum <0.1 ng/mL (<0.3); Cobalt, S <0.2 ng/mL
== END 2022-10-08 01:27 | disposition home or self-care (01) ==
LOC: LBO 01:26
PROVIDERS: PCP Family Medicine; Visit Provider Student in an Organized Health Care Education/Training Program
DX: G89.29 Other chronic pain (principal); M25.552 Pain in left hip; Z96.642 Presence of left artificial hip joint
CPT/HCPCS: 36415; 85652; 82495; 83789; 86140

== ENCOUNTER 2022-10-19 18:37 | Outpatient (REF) | payer MEDICARE, MEDICAID, SELFPAY ==
[2022-10-19 19:12] LABS: HCT 46.5 % (40.0-50.0); HGB 15.2 g/dL (13.5-17.5); MCH 29.3 pg (27.0-33.0); MCHC 32.7 % (32.0-36.0); MCV 90 fL (80-95); MPV 11.1 fL (8.0-11.0); Platelet Count 227 10^3/uL (130-400); RBC 5.19 10^6/uL (4.36-5.78); RDW 13.2 % (11.8-14.1); RDW-SD 43.4 fL; WBC 8.61 10^3/uL (4.4-10.8)
[2022-10-19 19:38] LABS: ALT 15 U/L (16-63); AST 16 U/L (15-37); Albumin 3.4 g/dL (3.4-5.0); Alkaline Phosphatase 85 U/L (46-116); Anion Gap 6.7 mmol/L (3-11); BUN 18 mg/dL (7-18); Bilirubin, Total 0.4 mg/dL (0.2-1.0); CO2 29.3 mmol/L (21.0-32.0); CREATININE 1.4 mg/dL (0.70-1.30); Calcium 9.5 mg/dL (8.5-10.1); Chloride 101 mmol/L (98-107); Estimated GFR 53.74 (mL/min/1.73m2); Glucose 109 mg/dL (74-106); HDL Cholesterol 51 mg/dL (40-60); LDL CHOLESTEROL 112 mg/dL (<100); Potassium 5.3 mmol/L (3.5-5.1); Sodium 137 mmol/L (136-145); Total Protein 7.2 g/dL (6.4-8.2)
[2022-10-19 20:01] LABS: Lipase 22 U/L (16-77)
== END 2022-10-19 18:38 | disposition home or self-care (01) ==
LOC: NCHCN 18:37
PROVIDERS: PCP Family Medicine; Visit Provider Nurse Practitioner Family
DX: K21.9 Gastro-esophageal reflux disease without esophagitis (principal); R12 Heartburn; R07.81 Pleurodynia; I48.0 Paroxysmal atrial fibrillation
CPT/HCPCS: 80053; 83690; 83721; 85027; 83718

== ENCOUNTER → 2022-11-11 10:47 | Outpatient (CLI) | payer MEDICARE, MEDICAID, SELFPAY ==
--- NOTE | 2022-11-11 | DI.RAD_ITS ---
Exam(s) XR CHEST 2V PA LATERAL EXAM: XR CHEST 2V PA LATERAL CLINICAL HISTORY: Shortness of Breath-R06.02 TECHNIQUE: 2D digital imaging was performed of the chest. Two images were obtained. PA and lateral views were obtained. COMPARISON: CR XR CHEST 2V PA LATERAL from 02/09/2022 FINDINGS: MEDIASTINUM: Normal. HEART: Normal. PULMONARY VASCULATURE: Normal. LUNGS: Emphysematous changes are seen in the lungs. No focal consolidating infiltrate. PLEURAL SPACE: No pleural effusion or pneumothorax. BONE:Within normal limits for the patient's age. OTHER FINDINGS:Normal. IMPRESSION: No acute pulmonary findings. DATA REPOSITORY: RADIATION DOSE DELIVERED:
== END ==
PROVIDERS: PCP Family Medicine; Visit Provider Nurse Practitioner Family
DX: R06.02 Shortness of breath (principal)
CPT/HCPCS: 71046

== ENCOUNTER → 2022-12-23 13:10 | Outpatient (BNVA) | payer MEDICARE, MEDICAID, SELFPAY | PROVIDERS: PCP Family Medicine; Referring Provider Family Medicine; Visit Provider Student in an Organized Health Care Education/Training Program | DX: M25.552 Pain in left hip (principal); G89.29 Other chronic pain; Z96.642 Presence of left artificial hip joint | CPT/HCPCS: 20611; J1040 ==

== ENCOUNTER 2023-01-21 04:05 | Outpatient (CLI) | payer MEDICARE, MEDICAID, SELFPAY ==
[2023-01-21 18:50] LABS: PSA, Diagnostic 4.5 ng/mL (<=6.5)
== END 2023-01-21 04:06 | disposition home or self-care (01) ==
LOC: LBO 04:05
PROVIDERS: PCP Family Medicine; Visit Provider Urology
DX: R97.20 Elevated prostate specific antigen [PSA] (principal)
CPT/HCPCS: 36415; 84153

== ENCOUNTER → 2023-01-28 09:40 | Outpatient (BNVA) | payer MEDICARE, MEDICAID, SELFPAY | PROVIDERS: PCP Family Medicine; Visit Provider Urology | DX: R31.0 Gross hematuria (principal) | CPT/HCPCS: 99213 ==

== ENCOUNTER → 2023-03-31 13:03 | Outpatient (BNVA) | payer MEDICARE, MEDICAID, SELFPAY | PROVIDERS: PCP Family Medicine; Referring Provider Family Medicine; Visit Provider Physician Assistant | DX: Z47.1 Aftercare following joint replacement surgery (principal); Z96.642 Presence of left artificial hip joint; G89.29 Other chronic pain | CPT/HCPCS: 20611; J1040 ==

== ENCOUNTER 2023-04-01 14:58 | Outpatient (REF) | payer MEDICARE, MEDICAID, SELFPAY ==
[2023-04-01 15:11] LABS: ESR 24 mm/hr (0-20)
[2023-04-01 15:29] LABS: Anion Gap 8.9 mmol/L (3-11); BUN 19 mg/dL (7-18); CO2 26.1 mmol/L (21.0-32.0); CREATININE 1.2 mg/dL (0.70-1.30); Calcium 10.2 mg/dL (8.5-10.1); Chloride 100 mmol/L (98-107); Creatine Kinase 80 U/L (39-308); Estimated GFR 64.65 (mL/min/1.73m2); Glucose 110 mg/dL (74-106); Magnesium 2.3 mg/dL (1.8-2.4); Potassium 4.8 mmol/L (3.5-5.1); Sodium 135 mmol/L (136-145)
== END 2023-04-01 14:59 | disposition home or self-care (01) ==
LOC: NCHCN 14:58
PROVIDERS: PCP Family Medicine; Visit Provider Nurse Practitioner Family
DX: I48.91 Unspecified atrial fibrillation (principal)
CPT/HCPCS: 80048; 82550; 85652; 83735

== ENCOUNTER 2023-07-13 07:59 | Outpatient (CLI) | payer MEDICARE, MEDICAID, SELFPAY ==
--- NOTE | 2023-07-13 07:45 | RT.EKG_ITS ---
APPROVED REPORT Exam: Resting ECG Reason for Exam: afib Patient Location: O HR:91 bpm ECG Measurements Heart Rate 91 AXIS MA [id number] P [id number] QRSd 82 QRS 15 QT 365 T 35 QTc 450 Conclusion Atrial fibrillation...V-rate 76-118, irreg A-activity Low voltage, extremity leads...all extremity leads <0.5mV Baseline wander in lead(s) V6
== END 2023-07-13 08:00 | disposition home or self-care (01) ==
LOC: DI.CARD 07:59
PROVIDERS: PCP Family Medicine; Visit Provider Internal Medicine Cardiovascular Disease
DX: I48.91 Unspecified atrial fibrillation (principal)
CPT/HCPCS: 93010

== ENCOUNTER → 2023-07-13 10:51 | Outpatient (BNVA) | payer MEDICARE, MEDICAID, SELFPAY | PROVIDERS: PCP Family Medicine; Referring Provider Family Medicine; Visit Provider Internal Medicine Cardiovascular Disease | DX: R94.31 Abnormal electrocardiogram [ECG] [EKG] (principal); I48.91 Unspecified atrial fibrillation | CPT/HCPCS: 93005; 99213 ==

== ENCOUNTER 2023-07-26 10:45 | Outpatient (CLI) | payer MEDICARE, MEDICAID, SELFPAY ==
--- NOTE | 2023-07-26 10:15 | DI.RAD_ITS ---
Exam(s) XR SHOULDER LT COMPLETE 2+V EXAM: XR SHOULDER LT COMPLETE 2+V CLINICAL HISTORY: LEFT SHOULDER PAIN. TECHNIQUE: 2D digital imaging was performed of the left shoulder. Two images were obtained. Axilla ry and Grashey views were obtained. COMPARISON: No exams were available for comparison FINDINGS: BONES: No acute fracture is present. No bony destructive lesion is seen. JOINTS: No dislocation present. The glenohumeral and acromioclavicular joints are well maintained. SOFT TISSUE: Unremarkable. IMPRESSION: No acute abnormality. DATA REPOSITORY: RADIATION DOSE DELIVERED:
== END 2023-07-26 10:46 | disposition home or self-care (01) ==
LOC: DIORS 10:46
PROVIDERS: PCP Family Medicine; Referring Provider Family Medicine; Visit Provider Student in an Organized Health Care Education/Training Program
DX: M75.102 Unspecified rotator cuff tear or rupture of left shoulder, not specified as traumatic
CPT/HCPCS: 99213; 73030

== ENCOUNTER → 2023-08-11 01:04 | Outpatient (CLI) | payer MEDICARE, MEDICAID, SELFPAY ==
--- NOTE | 2023-08-11 06:45 | DI.MRI_ITS ---
Exam(s) MR UPPER JOINT LT WO EXAM: MR UPPER JOINT LT WO CLINICAL HISTORY: L SHOULDER PAIN, rotator cuff tear, M75.102. TECHNIQUE: Multiplanar multisequence MRI was performed. COMPARISON: MR MRI - L UPPER JOINT WO CONT from 04/23/2010 CR XR SHOULDER LT COMPLETE 2+V from 07/26/2023 FINDINGS: BONES: There is no fracture or contusion pattern. JOINTS: Minimal degenerative changes are seen at the acromioclavicular joint. The glenohumeral joint is normal. No significant joint effusion. TENDONS: Supraspinatus: No evidence of a tear. There may be mild tendinosis. Infraspinatus: There is mild tendinosis without evidence of a tear. Subscapularis: Unremarkable. Teres Minor: Unremarkable. Biceps and Lawrence: Unremarkable. MUSCLES: Unremarkable. GLENOID LABRUM: Unremarkable on this noncontrast examination. SOFT TISSUES: Unremarkable. LIGAMENTS: Unremarkable. OTHER: There is a small amount of fluid seen in the subacromial subdeltoid bursa. IMPRESSION: 1. Small amount of fluid in the subacromial subdeltoid bursa suggesting mild bursitis. 2. No evidence of a rotator cuff tear. 3. Minimal degenerative changes seen at the acromioclavicular joint. DATA REPOSITORY:
== END ==
PROVIDERS: PCP Family Medicine; Visit Provider Student in an Organized Health Care Education/Training Program
DX: M75.52 Bursitis of left shoulder (principal)
CPT/HCPCS: 73221

== ENCOUNTER → 2023-08-17 10:35 | Outpatient (BNVA) | payer MEDICARE, MEDICAID, SELFPAY | PROVIDERS: PCP Family Medicine; Referring Provider Family Medicine; Visit Provider Student in an Organized Health Care Education/Training Program | DX: M75.52 Bursitis of left shoulder (principal) | CPT/HCPCS: 99213 ==

== ENCOUNTER 2023-09-01 13:08 | Outpatient (REF) | payer MEDICARE, MEDICAID, SELFPAY ==
[2023-09-01 15:26] LABS: Hemoglobin A1C 5.8 % (<5.7)
[2023-09-01 15:47] LABS: ALT 15 U/L (16-63); AST 21 U/L (15-37); Albumin 3.3 g/dL (3.4-5.0); Alkaline Phosphatase 73 U/L (46-116); Anion Gap 6.6 mmol/L (3-11); BUN 16 mg/dL (7-18); CO2 30.4 mmol/L (21.0-32.0); CREATININE 1.3 mg/dL (0.70-1.30); Calcium 9.3 mg/dL (8.5-10.1); Calculated LDL 105 mg/dL (<100); Chloride 101 mmol/L (98-107); Cholesterol 170 mg/dL (<200); Estimated GFR 58.37 (mL/min/1.73m2); Glucose 90 mg/dL (74-106); HDL Cholesterol 53 mg/dL (40-60); Potassium 4.9 mmol/L (3.5-5.1); Sodium 138 mmol/L (136-145); Total Protein 7.2 g/dL (6.4-8.2); Triglyceride 63 mg/dL (<150); Vitamin B12 362 pg/mL (193-986); Vitamin D 25 Total 33.2 ng/mL (30-100)
[2023-09-01 23:04] LABS: PSA, Diagnostic 5.5 ng/mL (<=6.5)
== END 2023-09-01 13:09 | disposition home or self-care (01) ==
LOC: NCHCN 13:08
PROVIDERS: PCP Family Medicine; Visit Provider Nurse Practitioner Family
DX: Z00.01 Encounter for general adult medical examination with abnormal findings (principal); Z13.1 Encounter for screening for diabetes mellitus; K21.9 Gastro-esophageal reflux disease without esophagitis
CPT/HCPCS: 80053; 80061; 82306; 82607; 83036; 84153

== ENCOUNTER → 2023-09-05 15:37 | Outpatient (BNVA) | payer MEDICARE, MEDICAID, SELFPAY | PROVIDERS: PCP Family Medicine; Referring Provider Family Medicine; Visit Provider Urology | DX: R31.0 Gross hematuria (principal); R97.20 Elevated prostate specific antigen [PSA] | CPT/HCPCS: 99442 ==

== ENCOUNTER → 2023-10-18 08:14 | Outpatient (BNVA) | payer MEDICARE, MEDICAID, SELFPAY | PROVIDERS: PCP Family Medicine; Referring Provider Family Medicine; Visit Provider Student in an Organized Health Care Education/Training Program | DX: M77.12 Lateral epicondylitis, left elbow (principal) | CPT/HCPCS: 20550; J1010 ==

== ENCOUNTER 2023-12-21 00:32 | Outpatient (CLI) | payer MEDICARE, MEDICAID, SELFPAY ==
--- NOTE | 2023-12-21 09:55 | DI.MRI_ITS ---
Exam(s) MR UPPER JOINT LT WO EXAM: MR UPPER JOINT LT WO CLINICAL HISTORY: L ELBOW PAIN,lateral epicondylitis lt elbow,m77.12 TECHNIQUE: Multiplanar multisequence MRI was performed without intravenous contrast. COMPARISON: There are no plain films available the time of this MRI interpretation FINDINGS: MARROW: There is no evidence of fracture, bone contusion, nor ominous osseous lesions. ELBOW JOINT: There is no evidence of elbow joint effusion.No prominent focal cartilage loss nor osteo chondral defect and there is no evidence of loose intra-articular body. There are no osteophytes. EPICONDYLES: There is abnormal fluid signal at and interposed between the common extensor tendon and the lateral epicondyle. Also adjacent subcutaneous soft tissue edema at this level seen posterior to the common extensor tendon. There is no abnormal intraosseous signal within the actual lateral epic ondyle. Similar findings are not seen on the opposite-medial aspect of the elbow. ULNAR COLLATERAL LIGAMENT: The anterior band which extends from the medial epicondyle to the sublime tubercle of the coronoid process of the ulna is intact. This structure is the strongest ligament in t he elbow and is the main opponent to severe valgus stress. RADIAL COLLATERAL LIGAMENT: Intact TENDONS: Biceps tendon reveals some mild increased insertional signal just proximal to the radial tuberosity l evel, however, there is no high-grade tear at this level. The brachialis tendon is intact. Triceps tendon also reveals some mild increased intrasubstance signal at its insertional aspect on th e posterior aspect of the olecranon. However, no high-grade tear this structure. CUBITAL TUNNEL/ULNAR NERVE: The ulnar nerve appears unremarkable beneath the cubital tunnel retinacul um/ arcuate ligament and posterior to the medial epicondyle. There is no evidence of arthritic spur arising from the epicondyle nor olecranon causing impingement on the ulnar nerve. There is no eviden ce of accessory anconeus muscle causing impingement at this level. There is also no evidence of soft tissue mass nor ganglia on cyst causing impingement at this level IMPRESSION: 1. There is significant abnormal signal with partial tearing of the insertional aspect of the common extensor tendon upon the lateral epicondyle, consistent with significant lateral epicondylitis (tenni s elbow). 2. Similar findings are not seen on the opposite-medial side of the elbow 3. Some increased signal is noted at the insertional aspect of the biceps and triceps tendons, howev er, there are no high-grade tears of these structures. Main findings here are at the level of the la teral epicondyle as described above. DATA REPOSITORY:
== END 2023-12-21 00:52 ==
LOC: DI 00:33
PROVIDERS: PCP Family Medicine; Visit Provider Student in an Organized Health Care Education/Training Program
DX: M77.12 Lateral epicondylitis, left elbow (principal)
CPT/HCPCS: 73221

== ENCOUNTER → 2023-12-27 14:17 | Outpatient (BNVA) | payer MEDICARE, MEDICAID, SELFPAY | PROVIDERS: PCP Nurse Practitioner Family; Referring Provider Family Medicine; Visit Provider Student in an Organized Health Care Education/Training Program | DX: M77.12 Lateral epicondylitis, left elbow (principal) | CPT/HCPCS: 99213 ==

== ENCOUNTER → 2024-01-16 13:55 | Outpatient (BNVA) | payer MEDICARE, MEDICAID, SELFPAY | PROVIDERS: PCP Nurse Practitioner Family; Referring Provider Family Medicine; Visit Provider Urology | DX: R31.0 Gross hematuria (principal); R97.20 Elevated prostate specific antigen [PSA] | CPT/HCPCS: 99213 ==

== ENCOUNTER 2024-01-16 14:40 | Outpatient (CLI) | payer MEDICARE, MEDICAID, SELFPAY ==
[2024-01-16 22:05] LABS: PSA, Diagnostic 4.4 ng/mL (<=6.5)
== END 2024-01-16 14:41 | disposition home or self-care (01) ==
LOC: LBO 14:43
PROVIDERS: PCP Nurse Practitioner Family; Visit Provider Urology
DX: R97.20 Elevated prostate specific antigen [PSA] (principal); R31.0 Gross hematuria
CPT/HCPCS: 36415; 99213; 84153

== ENCOUNTER 2024-03-05 01:29 | Outpatient (CLI) | payer MEDICARE, MEDICAID, SELFPAY ==
--- NOTE | 2024-03-05 10:16 | DI.RAD_ITS ---
Exam(s) XR HAND RT COMPLETE EXAM: XR HAND RT COMPLETE CLINICAL HISTORY: INJURY RT 3RD AND 4TH FINGERS,S69.81XA. TECHNIQUE: 2D digital imaging was performed. Three views. COMPARISON: No exams were available for comparison FINDINGS: Exam is limited by overlap fingers view. Patient was unable to separate the fingers peer BONES: No acute fracture is present. Old fracture fragments at the distal phalanx of the 4th finger. No bony destructive lesion is seen. JOINTS: No dislocation present. Degenerative changes. SOFT TISSUE: Normal. IMPRESSION: No acute abnormality DATA REPOSITORY: RADIATION DOSE DELIVERED:
== END 2024-03-05 01:49 ==
LOC: DI 01:30
PROVIDERS: PCP Nurse Practitioner Family; Visit Provider Nurse Practitioner Family
DX: S69.81XA Other specified injuries of right wrist, hand and finger(s), initial encounter (principal); X58.XXXA Exposure to other specified factors, initial encounter
CPT/HCPCS: 73130

== ENCOUNTER 2024-03-05 09:01 | Outpatient (REF) | payer MEDICARE, MEDICAID, SELFPAY ==
[2024-03-05 16:18] LABS: Hemoglobin A1C 5.8 % (<5.7)
[2024-03-05 16:34] LABS: Vitamin B12 419 pg/mL (193-986)
== END 2024-03-05 09:02 | disposition home or self-care (01) ==
LOC: NCHCN 09:01
PROVIDERS: PCP Nurse Practitioner Family; Visit Provider Nurse Practitioner Family
DX: I48.19 Other persistent atrial fibrillation (principal)
CPT/HCPCS: 82607; 83036

== ENCOUNTER → 2024-06-12 13:48 | Outpatient (BNVA) | payer MEDICARE, MEDICAID, SELFPAY | PROVIDERS: PCP Nurse Practitioner Family; Visit Provider Urology | DX: N52.9 Male erectile dysfunction, unspecified (principal); R68.82 Decreased libido | CPT/HCPCS: 99213 ==

== ENCOUNTER 2024-06-13 09:56 | Outpatient (CLI) | payer MEDICARE, MEDICAID, SELFPAY ==
[2024-06-16 11:20] LABS: Testosterone, Total 430 ng/dL (240-950)
== END 2024-06-13 09:57 | disposition home or self-care (01) ==
LOC: LBO 09:57
PROVIDERS: PCP Nurse Practitioner Family; Visit Provider Urology
DX: R68.82 Decreased libido (principal)
CPT/HCPCS: 36415; 84403

== ENCOUNTER → 2024-06-26 08:50 | Outpatient (BNVA) | payer MEDICARE, MEDICAID, SELFPAY | PROVIDERS: PCP Nurse Practitioner Family; Referring Provider Nurse Practitioner Family; Visit Provider Urology | DX: N52.9 Male erectile dysfunction, unspecified (principal); Z87.448 Personal history of other diseases of urinary system; Z90.79 Acquired absence of other genital organ(s) | CPT/HCPCS: 99213 ==

== ENCOUNTER 2024-07-12 09:31 | Outpatient (REF) | payer MEDICARE, MEDICAID, SELFPAY ==
[2024-07-12 17:24] LABS: Anion Gap 8.9 mmol/L (3-11); BUN 17 mg/dL (7-18); CO2 26.1 mmol/L (21.0-32.0); CREATININE 1.1 mg/dL (0.70-1.30); Calcium 9.4 mg/dL (8.5-10.1); Chloride 104 mmol/L (98-107); Estimated GFR 70.88 (mL/min/1.73m2); Glucose 94 mg/dL (74-106); Magnesium 2.1 mg/dL (1.8-2.4); Potassium 4.6 mmol/L (3.5-5.1); Sodium 139 mmol/L (136-145)
== END 2024-07-12 09:32 | disposition home or self-care (01) ==
LOC: NCHCN 09:31
PROVIDERS: PCP Nurse Practitioner Family; Visit Provider Nurse Practitioner Family
DX: R25.2 Cramp and spasm (principal)
CPT/HCPCS: 80048; 83735

== ENCOUNTER 2024-08-07 01:07 | Outpatient (CLI) | payer MEDICARE, MEDICAID, SELFPAY ==
--- NOTE | 2024-08-07 14:45 | DI.US_ITS ---
APPROVED REPORT EXAM: Comprehensive 2D, Doppler, and color-flow Echocardiogram Patient Location: Out-Patient Time Study Technician: Leticia Leonard RDCS (AE) Indications: Persistent atrial fibrillation, on Eliquis Other Information Study Quality: Fair. Technically limited study due to body habitus. Conclusion Normal left ventricular wall thickness and chamber size. Ejection fraction is 55%. Wall motion is n ormal Normal right ventricular size and function Both atria are normal in size There are no structural valvular abnormalities Mild mitral regurgitation Wall motion Left Ventricle Technically limited parasternal imaging. Limited calculations done. The overall left ventricular syst olic function appears normal. Regional wall motion is grossly normal. There is no ventricular septal defect visualized. LVEF is 55%. Right Ventricle The right ventricle is normal size. The right ventricular systolic function is normal. Atria The left atrium size is normal. The right atrium size is normal. The interatrial septum is intact wit h no evidence for an atrial septal defect. Aortic Valve The aortic valve is normal in structure. Aortic valve is trileaflet. There is no aortic valvular sten osis. No aortic regurgitation is present. Mitral Valve The mitral valve is normal in structure. No evidence of mitral valve stenosis. Mild mitral regurgitat ion. Tricuspid Valve The tricuspid valve is normal in structure. There is no tricuspid valve stenosis. Trace tricuspid reg urgitation. Unable to assess PA pressure. Pulmonic Valve The pulmonary valve is normal in structure. There is no pulmonic valvular stenosis. Trace pulmonic re gurgitation. Great Vessels The aortic root is normal in size. The ascending aorta is normal in size. Aortic arch is not well vis ualized. IVC is normal in size and collapses >50% with inspiration. Pericardium There is no pericardial effusion. 2D Dimensions Ao Root d 3.37 cm M: 3.1 - 3.7 Ao Asc Diam d 3.29 cm M: 2.6 - 3.4 M-Mode TAPSE 2.39 cm (M/F) >1.7 Auto EF LV EDV A4C 86.0 mL LV EDV A2C 98.5 mL LV EDV BP 90.1 mL LV ESV A4C 38.5 mL LV ESV A2C 44.2 mL LV ESV BP 40.3 mL LVEF(%) A4C 55.2 % LVEF(%) A2C 55.1 % LVEF(%) BP 55.2 % LV SV A4C 47.4 ml LV SV A2C 54.3 ml LV SV BP 49.8 ml LV CO A4C 4.6 L/min LV CO A2C 5.4 L/min LV CO BP 5.0 L/min HR A4C 96.78 BPM HR A2C 99.95 BPM LV EDV Index (BP) LA Volume LA Length A4C 5.4 cm LA Length A2C 6.0 cm LA Area A4C s 21.15 cm2 LA Area A2C s 19.74 cm2 LA Vol A4C A-L 70.09 mL LA Vol A2C A-L 55.52 mL LA Vol Biplane A-L 65.4 mL LA Vol/BSA A4C A-L LA Vol/BSA A2C A-L LA Vol/BSA BP A-L 34.3 mL/m2 LA Vol A4C MOD 65.3 mL LA Vol A2C MOD 53.1 mL LA Vol BP MOD 61.5 mL RA Volume RA Area A4C 16.9 cm2 RA ESV A4C (A-L) 43.6mL RA Vol/BSA A4C A-L RA Length A4C 5.6 cm RA ESV A4C (MOD) 42.1mL LV Diastology MV E' medial 0.117 (>0.07 m/s) MV E Vmax 1.03 (0.4-1.3 m/s) MV E' lateral 0.127 (>0.1 m/s) Aortic Valve AoV Vmax 1.17 m/s LVOT Vmax 0.69 m/s AoV Peak Grad 5.5 mmHg LVOT Peak Grad 1.9 mmHg AoV Area (Vmax) 1.91 cm2 LVOT VTI 0.133 m AoV VTI 0.240 m LVOT Mean Grad 1.1 mmHg AoV Mean Ulises. 0.83 m/s LVOT SV 43.20 mL AoV Mean Grad 3.1 mmHg LVOT Diam s 2.00 cm AoV Area (VTI) 1.80 cm2 AV Regurg Peak Gr. 5.50 mmHg Velocity Ratio 0.59 Mitral Valve MV Vmax TIPS 0.89 m/s MV Mean Grad 1.1 (<2mmHg) MV Area PHT 5.38 cm2 MV VTI 0.151 m Pulmonary Valve PV Vmax 0.85 (0.5-1.5 m/s) RVOT Vmax 0.68 m/s PV Peak Grad 2.9 mmHg RVOT Peak Gr. 1.9 mmHg PV Mean Ulises 0.61 m/s RVOT VTI 0.109 m PV Mean Grad 1.7 mmHg RVOT Mean Gr. 1.3 mmHg Tricuspid Valve TV S' 0.16 m/s
== END 2024-08-07 01:27 ==
LOC: DI 01:07
PROVIDERS: PCP Nurse Practitioner Family; Visit Provider Internal Medicine Cardiovascular Disease
DX: I48.19 Other persistent atrial fibrillation (principal)
CPT/HCPCS: 93306